=== PATIENT | female | born 1950 | race Caucasian/White ===

== ENCOUNTER 2018-09-14 18:38 | Outpatient (REF) | payer MEDICARE, SELFPAY ==
[2018-09-14 19:02] LABS: Abs Immature Grans 0.01 k/cumm (0.0-0.09); Absolute Basophil Count 0.04 k/cumm (0.0-0.2); Absolute Eosinophil Count 0.21 k/cumm (0.0-0.7); Absolute Lymphocyte Count 3.75 k/cumm (1.2-3.4); Absolute Monocyte Count 0.43 k/cumm (0.11-0.7); Absolute Neutrophil Count 3.64 k/cumm (1.2-6.7); Basophils % 0.5; Eosinophils % 2.6; HCT 43.7 % (36.0-46.0); HGB 14.4 g/dL (12.0-15.5); Immature Grans % 0.1; Lymphocytes % 46.4; Mean Corpuscular Hemoglobin 27.7 pg (27.0-33.0); Mean Platelet Volume 11.3 fL (8.0-11.0); Monocytes % 5.3; Neutrophils % 45.1; Platelet Count 234 x1000/uL (130-400); RBC Distribution Width 14.4 % (11.7-14.6); White Blood Cell Count 8.08 k/cumm (4.4-10.8)
[2018-09-14 19:25] LABS: ALT 18 U/L (12-78); AST 13 U/L (15-37); Albumin 3.5 g/dL (3.4-5.0); Alkaline Phosphatase 86 U/L (46-116); Anion Gap 8.1 mmol/L (3-11); BUN 23 mg/dL (7-18); Bilirubin, Total 0.8 mg/dL (0.2-1.0); CO2 30.9 mmol/L (21.0-32.0); CREATININE 0.85 mg/dL (0.55-1.02); Calcium 9.6 mg/dL (8.5-10.1); Chloride 105 mmol/L (98-107); Cholesterol 245 mg/dL (50-200); Glucose 103 mg/dL (70-100); HDL Cholesterol 42 mg/dL (40-60); LDL CHOLESTEROL 177 mg/dL (<100); Potassium 3.9 mmol/L (3.5-5.1); Sodium 144 mmol/L (136-145); TSH (W/Ref FT4) 2.52 uIU/mL (0.358-3.74); Total Protein 6.7 g/dL (6.4-8.2); Triglyceride 131 mg/dL (30-150)
[2018-09-14 19:50] LABS: COMMENT (LAB VIEW ONLY) 29.83 mg/dL; Microalb ug/mg Crea 30.2 ug/mg Cr
== END 2018-09-14 18:58 ==
LOC: NCHCN 18:38
PROVIDERS: PCP Nurse Practitioner Family; Visit Provider Nurse Practitioner Family
DX: E03.9 Hypothyroidism, unspecified (principal); I10 Essential (primary) hypertension; E78.5 Hyperlipidemia, unspecified; R73.09 Other abnormal glucose
CPT/HCPCS: 80053; 80061; 83721; 82043; 82570; 84443; 85025

== ENCOUNTER → 2019-01-18 10:47 | Outpatient (BNVA) | payer MEDICARE, SELFPAY | PROVIDERS: PCP Nurse Practitioner Family; Referring Provider Nurse Practitioner Family; Visit Provider Student in an Organized Health Care Education/Training Program | DX: M25.562 Pain in left knee (principal); M25.561 Pain in right knee; M17.11 Unilateral primary osteoarthritis, right knee; M17.12 Unilateral primary osteoarthritis, left knee | CPT/HCPCS: 20610; 99202; J1040 ==

== ENCOUNTER → 2019-03-01 15:24 | Outpatient (BNVA) | payer MEDICARE, SELFPAY | PROVIDERS: PCP Nurse Practitioner Family; Referring Provider Nurse Practitioner Family; Visit Provider Student in an Organized Health Care Education/Training Program | DX: M17.12 Unilateral primary osteoarthritis, left knee (principal); M17.11 Unilateral primary osteoarthritis, right knee; Z98.890 Other specified postprocedural states | CPT/HCPCS: 99213 ==

== ENCOUNTER 2019-04-20 10:52 | Emergency (ER) | payer MEDICARE, SELFPAY ==
[2019-04-20 11:02] VITALS: BP 134/66; PULSE 84; RESP 16; TEMP 36.6; O2SAT 96
--- NOTE | 2019-04-20 11:16 | ED.GENADUL_ITS ---
Discharge Plan Disposition Patient Disposition: HOME Condition: Good Discharge Details Chief Complaint: Nausea/Vomit/Diar Clinical Impression: Atrophy of right kidney, Diarrhea, Abdominal bloating, Acute hypokalemia, C. difficile diarrhea Primary Care Provider: Brandon Bowden ED Provider: Min Montemayor Home Meds and New Rx's Prescriptions: New vancomycin 125 mg capsule 125 mg PO QID 10 Days Qty: 40 RF: 0 No Action metoprolol succinate 200 mg cap,sprinkle,ER 24hr dose pack 100 mg PO DAILY RF: 0 amlodipine 10 mg tablet 10 mg PO DAILY RF: 0 levothyroxine 25 mcg capsule 25 mcg PO DAILY RF: 0 aspirin [Adult Low Dose Aspirin] 81 mg tablet,delayed release (DR/EC) 81 mg PO DAILY RF: 0 hydrochlorothiazide 25 mg Tablet 25 mg PO DAILY RF: 0 Discharge Instructions Instructions: Hypokalemia (ED), Clostridium Difficile Infection (ED), Acute Diarrhea (ED) Additional Instructions: We have identified the cause of your symptoms as C. difficile infection. Is very important you take your antibiotics. Additionally you must be able to tolerate oral intake, fluids and brat diet. If you are unable to do this or become dizzy lightheaded weak feverish abdominal pain, you will need to return to the emergency department right away. Follow-up with your primary care is very important to ensure that we are able to eradicate this infection. Discharge Data Discharge Date/Time-TO BE ENTERED AT DEPARTURE: 04/20/19 14:03 Medical Decision Making Patient resting comfortably, afebrile, stable vitals, able to tolerate p.o. intake. Labs significant for hypokalemia and mild hypomagnesemia. Discussed importance of continuing to eat despite having diarrhea which she had been reluctant to do. She will go home, eat bananas, along with brat diet. Discussed option of taking p.o. potassium but feels this will upset her stomach. Instructed to return promptly if she is unable to tolerate p.o., develops any lightheadedness dizziness, weakness,. Stool studies have been ordered and sent and we will contact her with results. For now she will follow-up with her primary care as scheduled next week. In addition of this she will need to follow-up with her primary care for her incidental finding of right renal atrophy with chronic ureteral obstruction and likely will need specialist consultation for this as well. Instructed to avoid NSAIDs. Addendum: just prior to departure, C. diff test returned and is pos. Reviewed tx w/ pt. Will initiate vancomycin po. GRACIE Womack is a 69-year-old woman with past medical history significant for hypertension presenting to the emergency department for evaluation of 2 months of abdominal bloating and diarrhea. She has approximately 10 episodes of watery diarrhea per day. She was seen for the same complaint on Wednesday in the [facility] emergency department. She underwent CT of her abdomen and pelvis as well as abdominal ultrasound, then right upper quadrant ultrasound the following day. No acute pathology identified. No choledocholithiasis, no pancreatitis, no diverticulitis or appendicitis, of note there was incidental finding of chronic right ureteral obstruction with resultant right renal parenchymal atrophy, comment from radiologist was that this is likely lifelong. At the time of that visit she had abdominal pain and chest pain associated with her symptoms along with vomiting. These additional symptoms have resolved, she is here today because of the ongoing diarrhea. This occurs whenever she eats or drinks. She is able to eat without vomiting however. No fevers, no chills, no pain, no bloody stools. She has had a colonoscopy in the past with recommended 10-year follow-up for screening purposes only. General Date/Time Provider Initiated Documentation: 04/20/19 11:14 . Related Data Home Medications Medication Instructions Recorded Confirmed amlodipine 10 mg tablet 10 mg PO DAILY 01/18/19 04/20/19 aspirin 81 mg tablet,delayed 81 mg PO DAILY 01/18/19 04/20/19 release levothyroxine 25 mcg capsule 25 mcg PO DAILY 01/18/19 04/20/19 metoprolol succinate 200 mg 100 mg PO DAILY 01/18/19 04/20/19 capsule sprinkle, ext. release 24 hr hydrochlorothiazide 25 mg PO DAILY 04/20/19 04/20/19 vancomycin 125 mg PO QID 10 Days #40 cap 04/20/19 Previous Rx's Medication Instructions Recorded vancomycin 125 mg PO QID 10 Days #40 cap 04/20/19 Allergies Allergy/AdvReac Type Severity Reaction Status Date / Time adhesive tape Allergy Verified 04/20/19 11:06 erythromycin base Allergy Verified 04/20/19 11:06 latex Allergy Verified 04/20/19 11:06 Penicillins Allergy Verified 04/20/19 11:06 potassium Allergy Verified 04/20/19 11:06 General Stated Complaint: Nausea/Vomit/Diar ILENE: 3 Review of Systems Constitutional Denies chills, Denies fatigue, Denies fever(s) and Denies lethargy Eyes Denies loss of vision ENT Denies nasal congestion and Denies sore throat Cardiovascular Denies chest pain and Denies dyspnea Respiratory Denies cough and Denies dyspnea Gastrointestinal Denies abdominal pain, Denies nausea and Denies vomiting Musculoskeletal Denies back pain, Denies muscle weakness and Denies numbness Integumentary/Breasts Denies rash Neurologic Denies focal weakness, Denies loss of vision and Denies numbness Endocrine Denies fatigue Hematologic/Lymphatic Denies easy bruising PFSH Social History Smoking/Tobacco Use Status: Never Alcohol Intake: never Substance use type: does not use Exam Const General: cooperative, healthy appearing and no acute distress HENMT Head: normal to inspection Ears: hearing grossly normal bilaterally Eyes EOM: EOM intact bilaterally Neck Neck: normal visual inspection Resp Effort & Inspection: normal respiratory effort Auscultation: clear to auscultation bilaterally Cardio Rate: regular rate Rhythm: regular rhythm Heart Sounds: no murmurs GI Palpation: soft and tender Other: Mild generalized abdominal tenderness with firm deep palpation. No guarding or rebound tenderness. There are hyperactive bowel sounds. Skin General skin exam: no rashes or lesions noted Neuro General: alert, awake and oriented x3 Speech: speech normal Gait: normal gait Extrem General: normal to inspection Course Vital Signs Temperature 36.6 C 04/20/19 11:02 Pulse 84 04/20/19 11:02 Respiratory Rate 16 04/20/19 11:02 Blood Pressure 134/66 04/20/19 11:02 Pulse Oximetry 96 04/20/19 11:02 Temperature 36.6 C 04/20/19 11:02 Temperature Source Skin 04/20/19 11:02 Pulse 84 04/20/19 11:02 Respiratory Rate 16 04/20/19 11:02 Respiratory Effort Non-Labored 04/20/19 11:02 Blood Pressure 134/66 04/20/19 11:02 Blood Pressure Position Sitting 04/20/19 11:02 Pulse Oximetry 96 04/20/19 11:02 Oxygen Delivery Method Room Air 04/20/19 11:02 Oxygen Flow Rate 0 04/20/19 11:02 Pain Level 0 04/20/19 11:02
[2019-04-20] MEDS: Normal Saline 1,000 ML 1000 ML IV (11:45)
[2019-04-20 11:56] LABS: Bilirubin Moderate (Negative); Blood Negative (Negative); Clarity Cloudy (Clear); Glucose Negative (Negative); Ketones 15 mg/dL (Negative); Leukocyte Esterase Small (Negative); Nitrite Negative (Negative); Specific Gravity 1.015 (1.005-1.025); Urobilinogen 0.2 EU/dL (Up TO 0.2); pH 5.5 (5-8)
[2019-04-20 11:56] LABS: Abs Immature Grans 0.01 k/cumm (0.0-0.09); Absolute Basophil Count 0.03 k/cumm (0.0-0.2); Absolute Eosinophil Count 0.66 k/cumm (0.0-0.7); Absolute Lymphocyte Count 2.74 k/cumm (1.2-3.4); Absolute Monocyte Count 1.15 k/cumm (0.11-0.7); Absolute Neutrophil Count 4.89 k/cumm (1.2-6.7); Basophils % 0.3; HCT 43.1 % (36.0-46.0); HGB 14.3 g/dL (12.0-15.5); Immature Grans % 0.1; Lymphocytes % 28.9; Mean Corp. HGB Concentration 33.2 g/dL (32.0-36.0); Mean Corpuscular Hemoglobin 27.4 pg (27.0-33.0); Mean Corpuscular Volume 82.7 fL (80-95); Mean Platelet Volume 10.1 fL (8.0-11.0); Monocytes % 12.1; Neutrophils % 51.6; Platelet Count 288 x1000/uL (130-400); RBC 5.21 m/cumm (4.00-5.20); RBC Distribution Width 14.6 % (11.7-14.6); White Blood Cell Count 9.48 k/cumm (4.4-10.8)
[2019-04-20 12:10] LABS: ALT 16 U/L (14-59); AST 12 U/L (15-37); Albumin 2.9 g/dL (3.4-5.0); Alkaline Phosphatase 100 U/L (46-116); Anion Gap 10.6 mmol/L (3-11); BUN 15 mg/dL (7-18); CO2 29.4 mmol/L (21.0-32.0); CREATININE 0.98 mg/dL (0.55-1.02); Calcium 8.7 mg/dL (8.5-10.1); Chloride 101 mmol/L (98-107); Estimated GFR 56.44 (mL/min/1.73m2); Glucose 111 mg/dL (70-100); Magnesium 1.7 mg/dL (1.8-2.4); Potassium 3.1 mmol/L (3.5-5.1); Sodium 141 mmol/L (136-145)
[2019-04-20 12:12] LABS: Epithelial Cells Many HPF (Negative); RBC >50 (0-2); WBC >50 HPF (0-5)
[2019-04-20 12:13] LABS: Bacteria Many HPF (Negative); C & S Indicated? No/Sq. Contamination; Casts Negative LPF (Negative); Crystals Negative HPF (Negative); Mucus Negative (Negative); Other Cells Moderate Renal (Negative)
[2019-04-20 12:22] LABS: Lipase 34 U/L (73-393)
[2019-04-20 13:50] VITALS: BP 125/70; PULSE 76; TEMP 35.2; O2SAT 94
[2019-04-20 14:00] VITALS: BP 125/70; PULSE 76; RESP 16; TEMP 35.2; O2SAT 94
[2019-04-21 10:56] LABS: Campylobacter PCR SEE COMMENTS; Salmonella PCR SEE COMMENTS; Shiga Toxin PCR SEE COMMENTS; Shigella/Enteroinvasive Ecoli SEE COMMENTS
== END 2019-04-20 14:03 | disposition home or self-care (01) ==
PROVIDERS: Emergency Provider Physician Assistant Medical; PCP Nurse Practitioner Family
DX: A04.72 Enterocolitis due to Clostridium difficile, not specified as recurrent (principal); E87.6 Hypokalemia; I10 Essential (primary) hypertension
CPT/HCPCS: 36415; 80053; 83690; 87329; 87505; 96360; 99283; 81003; 81015; 83735; 85025; 87177; 87324

== ENCOUNTER 2019-05-15 15:58 | Outpatient (CLI) | payer MEDICARE, SELFPAY ==
--- NOTE | 2019-05-15 15:14 | DI.RAD_ITS ---
EXAM: XR KNEE LT 2V AP,LAT INDICATION: knee pain. COMPARISON: No exams were available for comparison TECHNIQUE: 2D digital imaging was performed. FINDINGS: Narrowing of the medial tibiofemoral joint space and articular sclerosis are demonstrated. Mild ruchi articular hypertrophic spurring is noted. Narrowing of the patellofemoral joint and hypertrophic torres nges are identified. There is no joint effusion. There is no evidence of a fracture or dislocation. IMPRESSION: Severe DJD is demonstrated.
--- NOTE | 2019-05-15 15:14 | DI.RAD_ITS ---
EXAM: XR KNEE RT 2V AP,LAT INDICATION: knee pain. COMPARISON: XR KNEE LT 2V AP,LAT from 05/15/2019 TECHNIQUE: 2D digital imaging was performed. FINDINGS: There is narrowing of the medial joint compartment, articular sclerosis and periarticular hypertrophi c spurring. No joint effusion is seen. There is no evidence of fracture or dislocation. IMPRESSION: Severe DJD involving the right knee.
--- NOTE | 2019-05-15 15:30 | DI.RAD_ITS ---
EXAM: XR STANDING ALIGNMENT INDICATION: knee pain. COMPARISON: No exams were available for comparison TECHNIQUE: 2D digital imaging was performed. FINDINGS: Leg length study reveals the left leg measures 837 mm. The right leg measures 828 mm. There is sever e DJD involving both knees.
== END 2019-05-15 16:18 ==
PROVIDERS: PCP Nurse Practitioner Family; Referring Provider Nurse Practitioner Family; Visit Provider Student in an Organized Health Care Education/Training Program
DX: M25.561 Pain in right knee (principal); M25.562 Pain in left knee; M17.11 Unilateral primary osteoarthritis, right knee; M21.70 Unequal limb length (acquired), unspecified site; M17.12 Unilateral primary osteoarthritis, left knee
CPT/HCPCS: 20610; 99214; 73560; 77073; J1040

== ENCOUNTER 2019-08-24 10:31 | Outpatient (CLI) | payer MEDICARE, SELFPAY ==
[2019-08-24 10:52] LABS: HCT 43.1 % (36.0-46.0); HGB 14.2 g/dL (12.0-15.5); Mean Corp. HGB Concentration 32.9 g/dL (32.0-36.0); Mean Corpuscular Volume 82.1 fL (80-95); Mean Platelet Volume 10.1 fL (8.0-11.0); Platelet Count 254 x1000/uL (130-400); RBC 5.25 m/cumm (4.00-5.20); RBC Distribution Width 14.6 % (11.7-14.6); White Blood Cell Count 7.74 k/cumm (4.4-10.8)
[2019-08-24 11:47] LABS: BUN 21 mg/dL (7-18); CREATININE 0.67 mg/dL (0.55-1.02); Calcium 9.5 mg/dL (8.5-10.1); Chloride 105 mmol/L (98-107); Glucose 104 mg/dL (74-106); Potassium 4.1 mmol/L (3.5-5.1); Sodium 145 mmol/L (136-145)
== END 2019-08-24 10:51 ==
PROVIDERS: PCP Nurse Practitioner Family; Visit Provider Student in an Organized Health Care Education/Training Program
DX: M25.562 Pain in left knee (principal); M17.12 Unilateral primary osteoarthritis, left knee; Z01.818 Encounter for other preprocedural examination
CPT/HCPCS: 36415; 80048; 85027

== ENCOUNTER 2019-08-30 07:12 | Inpatient (IN) | payer MEDICARE, SELFPAY ==
[2019-08-24 09:37] VITALS: BP 134/74; PULSE 61; RESP 16; TEMP 36.6; O2SAT 99
[2019-08-30] VITALS (13 sets, daily range): BP systolic 96–136; BP diastolic 33–83; PULSE 48–65; RESP 12–27; TEMP 35.7–37.1; O2SAT 93–99
[2019-08-30] MEDS: Celecoxib 200 MG CAP 400 MG PO (07:35)
[2019-08-30] MEDS: Acetaminophen 500 MG TAB 1000 MG PO ×3 (07:36→19:46)
[2019-08-30] MEDS: Gabapentin 300 MG CAP PO ×2 (07:36→21:42)
[2019-08-30] MEDS: Lactated Ringers 1,000 ML 80 ML IV ×3 (07:37→21:41)
[2019-08-30] MEDS: ceFAZolin 2 GM/50 ML BAG IVPB (08:40)
[2019-08-30] MEDS: Normal Saline 20 ML VIAL (09:26)
[2019-08-30] MEDS: Bupivacaine 0.25% Pres-Free 30 ML VIAL (09:28)
[2019-08-30] MEDS: Ketorolac 30 MG/ML VIAL (09:28)
--- NOTE | 2019-08-30 12:12 | NUR.NOTE ---
Nursing Note: Patient transferred to floor from PACU at noon on 08/30/19. Patient alert and oriented x 3. Patient denies pain to left knee at this time, but reports feeling it when cryo cuff was turned on. Patient reports normal sensation to bilateral lower extremities. Patient able to wiggle toes. Denies residual numbness/tingling. Positive pedal and radial pulses bilaterally. Irregular HR bradycardic at 48-54 apically. Lungs clear in all lobes. Normal bowel sounds. Reports last BM 08/29/19. Cryo cuff on left knee. SCD and KIMBERLY on right leg. VSS, see worklist. Patient drinking gingerale and watching TV.
--- NOTE | 2019-08-30 14:41 | PT.INIE ---
Date of service: 08/30/19 Time of Service: 13:26 PT Notes Visit Reasons: OA (L) KNEE Physical Therapy Inpatient Initial Evaluation Date: 08/30/2019 Referring Doctor: Cristian Kirk MD PT Orders: PT CONSULT: s/p ortho surgery Precautions: Fall. Standard. Activity as tolerated. Patient Profile/Admitting Diagnosis: Pt is a 69-year-old female presenting s/p L TKA on 08/30/2019. PMHX: Medical History (Updated 08/24/19 @ 08:45 by Danika Faustin) Borderline diabetes mellitus (Chronic) Hx of Clostridium difficile infection (Acute) ER visit Improved with oral antibx Hypertension (Chronic) Hypothyroidism (Chronic) Impaired renal function (Chronic) Pt reported Vaginal yeast infection (Acute) Surgical History (Updated 08/24/19 @ 09:34 by Nannette Elmore RN) History of breast surgery (Acute) Blocked duct Left breast History of (Chronic) History of colonoscopy (Chronic) History of eye surgery (Acute) Right eye - detached retina Hx of dilation and curettage (Acute) Social History/Home Situation: Pt lives at home with her in a ranch style home. Three steps into the home with railing on the left. Notes she has a daughter and friends that are able to be with her when her is not home. Two dogs in the house. Equipment Owned/DME: two-wheeled walker Subjective: Pt reports that she is not experiencing any pain with lying in bed. She reports feeling lightheaded following the surgery which has improved. Objective: General Observation: IV on right UE. pérez catheter in place. KIMBERLY stocking on RLE. Mental Status: alert and oriented x4 Pain: 0/10 pain with rest, 1-2/10 when standing Vital Signs: Supine BP 132/74 mmHg HR 55 bpm Sitting BP 123/65 mmHg HR 57 bpm Standing BP 111/75 HR 58 bpm ROM: Right Upper Extremity: Shoulder Flexion WFL. Shoulder abduction WFL. Elbow flexion WFL. Wrist flexion WFL. Opening and closing of hand WFL. Left Upper Extremity: Shoulder Flexion WFL. Shoulder abduction WFL. Elbow flexion WFL. Wrist flexion WFL. Opening and closing of hand WFL. Right Lower Extremity: Hip flexion WFL. Hip abduction WFL. Knee flexion WFL. Ankle dorsiflexion WFL. Ankle plantarflexion WFL. Left Lower Extremity: Hip flexion WNL. Hip abduction WFL. Knee flexion 105 degrees. Knee extension -20 degrees. Able to perform 10 SLR with moderate difficulty. Ankle dorsiflexion WFL. Ankle plantarflexion WFL. Strength: Right Upper Extremity: Shoulder flexors 5/5. Shoulder abductors 5/5. Elbow flexors 5/5. Elbow extensors 5/5. Seamless Tube Drawer strong. Left Upper Extremity: Shoulder flexors 5/5. Shoulder abductors 5/5. Elbow flexors 5/5. Elbow extensors 5/5. Seamless Tube Drawer strong. Right Lower Extremity: Hip flexors 5/5. Hip abductors 5/5. Knee flexors 5/5. Knee extensors 5/5. Ankle dorsiflexors 5/5. Ankle plantarflexors 5/5. Left Lower Extremity: Hip flexors 4-/5. Hip abductors 5/5. Knee flexors 3-/5. Knee extensors 3-/5. Ankle dorsiflexors 5/5. Ankle plantarflexors 5/5. Sensation: Intact as to pain and pressure on bilateral lower extremities. Bed Mobility/Transfers: Rolling SBA Supine to sit SBA Sit to supine SBA Sit to stand CGA Stand to sit CGA Bed to chair CGA Chair to bed CGA Gait: Pt was able to ambulate WBAT 30 feet using a two-wheeled walker with CGA by PT with follow behind of wheelchair by PT student. Step-to gait pattern. No complaints of increased dizziness or pain with ambulation. Balance: Static Sitting: Normal Dynamic Sitting: Normal Static Standing: Good Dynamic Standing: Fair Special Tests: Mobility Limitations Standardized Measure [facility] AM-PAC 6 clicks Basic Mobility Inpatient Short Form: Raw Score: 21 CMS Score: 29% deficit Informed Consent/Education: Patient instructed in purpose of PT consult and plan of care. HEP glute sets, quad sets, and ankle pumps. Assessment: Pt is a 69-year-old female presenting s/p L TKA, surgical date 08/30/2019. At the time of the initial evaluation the patient presented with impairment level findings including decreased strength, impaired L knee ROM, impaired gait, impaired static and dynamic standing balance, and decreased activity tolerance. Pt would continue to benefit from skilled physical therapy at this time for improved functional mobility, joint mobility, strength and management of pain in order to return home. Patient presents with clinical signs and symptoms consistent with current/admitting diagnoses that have resulted to mobility limitations, gait instability, generalized weakness, and impairment of motor control as demonstrated by the following impairment level findings: 1. Decreased strength to L LE hip and knee major muscle groups 2. Impaired standing balance 3. Impaired activity tolerance 4. Limitation of joint range of motion in L knee Impairments are contributing to the following functional limitations: 1. Dependent bed mobility skills 2. Increased dependence with transfers 3. Inability to safely ambulate without assistive device and physical assistance 4. Increase completion time for mobility ADL performance 5. Increased fall risk 6. Inability to negotiate steps alone safely Patient is assessed as a [id number] moderate complexity based on the following: History: Pt is a 69-year-old female presenting s/p L TKA Examination: Demonstrable impairment in strength, balance, and range of motion with underlying impairments and functional limitations as documented above Presentation: Evolving Decision Makin moderate complexity Goals: Goals X1 week 1. Sit-Stand independent 2. Stand-Sit independent 3. Bed-Chair independent 4. Chair-Bed independent 5. Independent gait on level surface with use of least restrictive device for at least 300 feet without report of pain nor dyspnea 6. Independent stair negotiation while holding onto bilateral rails for at least 5 steps without report of pain nor dyspnea 7. Independent with home exercise program 8. Good static and dynamic standing balance/tolerance Plan of Care/Treatment Plan: 1-2x/day, 7 days/week x 1 week. Plan of care has been reviewed with the REQUIREMENTS ENGINEER providing the service under Physical Therapy direction. Initiate Physical Therapy intervention for strengthening, bed mobility, transfers, gait, stairs, balance training, use of assistive device. DISCHARGE RECOMMENDATIONS: May benefit from skilled physical therapy services according to orthopedic surgeon's timeline recommendations. Patient will be educated and trained on home exercise program per TKA exercise protocol in preparation for outpatient physical therapy services. TREATMENT CODE/TIME: 15582 x 25 minutes, [id number] x 14 minutes beginning at 13:26 p.m. Thank you very much for this referral. Hortencia Rome, SPT Doctor of Physical Therapy Student [facility] Supervision provided by Maggi Gruber PT, DPT, CLT [facility] [place], [place]
[2019-08-30] MEDS: ceFAZolin 1 GM/50 ML BAG IVPB ×2 (15:35→23:37)
[2019-08-30] MEDS: Normal Saline Flush 10 ML SYR IV (15:36)
[2019-08-30] MEDS: Naproxen 500 MG TAB PO (19:46)
[2019-08-30] MEDS: Aspirin E.C. 81 MG TABEC PO (19:46)
--- NOTE | 2019-08-30 21:30 | ROE_ITS ---
Date of service: 08/30/19 Time of Service: 10:31 Operative Note Operative Note DATE OF PROCEDURE: 08/30/19 PRE-OP DIAGNOSIS: Left Knee Osteoarthritis POST-OP DIAGNOSIS: same PROCEDURE: Left Total Knee Replacement SURGEON: Cristian Kirk BRANCH OFFICE MANAGER: Danika Faustin ANESTHESIA: regional and spinal ESTIMATED BLOOD LOSS: 150 PATHOLOGY: none sent TOURNIQUET TIME: 0 COMPLICATIONS: None Patient was transported to: PACU Patient's condition: stable Implants: 1. Depuy Attune Posterior Stabilized Femoral Component, Size 3 2. Depuy Attune Fixed Platform Tibial Component, Size 3 3. Depuy Attune 3 x 8 fixed, Stabilized Poly 4. Depuy Attune Patellar Component, Size 35 Indications: I have seen Shanta in clinic for symptoms of left knee arthritis, confirmed with radiographic findings. Shanta has exhausted nonoperative methods and was having significant limitations in daily function and desired better function and less pain. I discussed the technical details of a knee replacement. I explained the risks of the procedure to include, but not limited to, bleeding, infection, pain, stiffness, fracture, damage to nerves and vessels, damage to muscles and tendons, loosening, need for repeat procedure, blood clot and cardiopulmonary demise. Despite these risks, Shanta elected to pr oceed. Findings: There was significant signs of arthritis throughout the knee. Procedure Description: Shanta was greeted in the preoperative holding area where the correct side was identified and marked. The consent was reviewed with the patient and signed. The history and physical was updated. All questions were answered. Preoperative mediacations were administered: Acetaminophen 1000mg, Celebrex 400mg, and Gabapentin 300mg. An adductor canal block was then administered by the anesthesia team in the PACU. Shanta was taken back to the operating room. A spinal anesthestic was then administered. The patient was placed into the supine position on the operating room table. A nonsterile tourniquet was placed high onto the leg but not used. Posts were placed for positioning during the procedure. All bony prominences were well padded. Prophylactic antibiotics in the form of cefazolin were administered. 1g of Tranxemic Acid was given intravenously within 30 minutes of incision. The left leg was then prepped with Chloraprep and draped in a standard fashion with impervious stockinette and extremity drape. A second prep with Chloraprep was performed prior to placing Ioband. A timeout to confirm correct identity, side and site, procedure, allergies, anesthesia, and medical concerns was performed. With the knee in some flexion, a midline incision was made overlying the knee. Full thickness skin flaps were raised once the extensor mechanism was encountered. These were raised medially and laterally. Any bleeding was controlled with electrocautery. Once the extensor mechanism was fully exposed, a medial parapatellar arthrotomy was performed in a flexed position. All bleeding from the arthrotomy and the geniculate arteries was coagulated. A medial subperiosteal peel was performed with electrocautery to the midcoronal plane. Due to the significant varus deformity the entire medial tibial plateau was exposed. The fat pad was removed while keeping the patellar tendon protected. The anterior distal femur synovium was removed for later visualization. The ACL and PCL were resected and the anterior horn of the lateral meniscus was transected. The knee was then flexed with the patella everted. Large osteophytes from the tibia were removed. Large osteophytes from the femur were removed. Using a step drill, and based on preoperative templating, the femoral canal was entered. This was done with a step drill without any difficulty. The intramedullary distal femoral cut guide was inserted, set to a 4 degree valgus cut and 9mm cut thickness. The distal femoral cut guide was then held in position and pinned. With the soft tissues protected, the distal cut was performed. This was passed over a few times to ensure a planar cut. I then turned attention to the tibia. The extramedullary guide was placed onto the leg. The distal aspect was slid medial to adjust for position of center of ankle and stay in line with shaft of the tibia. Approximately 3-5 degrees of posterior slope was kept in the proximal cutting guide. The center of the guide was aligned with the PCL. The stylus was used to assess cut thickness. The medial side, most involved side, was set for a 4mm cut. This was then held in position and pinned into place with 2 additional pins and a cross pin for stability. The medial and lateral collateral ligaments were protected and the cut was performed. With this completed, it was assessed and noted to be of appropriate dimensions. The guide was removed. A spacer block was inserted and the knee was brought into extension. The 7mm spacer block provided full extension, without hyperextension and with stability of both the medial and lateral collateral ligaments was assessed. The pins from the femur and the tibia were then removed. The distal femur was then sized. The anterior stylus was placed onto the lateral ridge of the anterior femur. This indicated a size 3 femur. The external rotation of the guide was adjusted to 3 degrees to match the epicondylar axis, perpendicular to Otf?s line. The 4-in-1 cutting guide was the placed. The posterior medial femur cut was evaluated and appeared of good thickness. The spacer block was inserted underneath the cutting guide and stability was confirmed in 90 degrees of flexion. An demetri wing was used to confirm appropriate position of the anterior cut to avoid notching. This cutting guide was ensured to be flush on the cut surface and then pinned into p lace with headed pins. While protecting the soft tissues, quad tendon, and collateral ligaments, the anterior and posterior cuts were performed with a saw. The central two pins were removed and the posterior and anterior chamfers were cut next. The notch-cutting guide was placed. This was pinned to lateralize the femoral component as much as possible while keeping it flush on the cut surface. This was then pinned into position. A reciprocating saw was used to make the notch cut. A rasp smoothed the cut surfaces. A trial posterior stabilized femoral component was then inserted, impacted down to the cut surfaces, and the lug holes were drilled. A provisional trial tibial component was placed and the knee was brought through range of motion. The polyethylene was trialed until there was good flexion and extension with excellent stability to the medial and lateral collaterals.] The patella was tracking without thumbs. The tibial cut surface was fully exposed. The medial and lateral menisci were removed. The tibia was then sized as a 3. The tibia had been previously marked during trialing to correspond to the center of the tibial component to help with rotation. The trial was aligned to this bee, approximately rotated to the medial 1/3rd of the tibial tubercle. The trial was pinned into place. The tibia was prepared with a reamer and a keel punch. The knee was then brought into extension and the patella was measured as 22mm. Using the patellar clamp and cut guide, this was resected to a flat surface with at least 13mm of thickness remaining. The size 35 patella fit the best. This was oriented and then clamped into position. The lugs were drilled. The trial components were removed. The final components, except for the polyethylene were opened on the back table. The periosteal and capsular tissues, especially posteriorly, around the knee were then systematically injected with a periarticular cocktail consisting of 50cc 0.25% Marcaine, 30mg K etorolac, 20cc of Exparal and 50cc of injectable saline. The tourniquet was then inflated to 275mmHg. The knee was thoroughly irrigated with a pulse lavage and dried. On the back table, with the implants opened, the cement was mixed. 2 batches of antibiotic laden cement were prepared with vacuum assistance. After the cement was ready it was placed on to the back side of the tibial component. A small amount was placed onto the posterior flange of the femur. Cement was manual pressurized and impregnated into the cut surface of the tibia. The tibial component was then inserted into the cut surface and impacted into position. Excess cement was removed and the component was reimpacted. Again, excess cement was removed and our attention was then turned to the femur. The femoral cut surface was once again dried and cement was manually impacted into the cut surface. The femoral component was lined with the lug holes and impacted. Excess cement was removed. It was ensured to be down against the cut surface. The trial polyethylene was then inserted and the leg was brought out into full extension for the duration of the cement curing process, approximately 15min. Cement was lastly manually impacted into the cut surface of the patella and the patellar button was clamped into position and held. During this process attention was turned to the gutters of the knee and for all interfaces for any excess cement. While the cement was hardening, the knee was irrigated with Irrisept chlorhexadine solution. It was allowed to sit in the knee for 3 minutes. After the cement had finally cured, approximately 15min, the clamp was removed from the patella and the knee was taken through range of motion. A size 8mm polyethylene component provided the best range of motion and stability with less than 2mm gapping with medial and lateral stress and full extension without significant hyperextension. The patella was tracking with a no-thumbs technique. The trial poly was removed and once again the knee was checked for any loose, excess, or errant cement. The poly component was then inserted and impacted into position after cleaning and drying the tibial tray. The capsule was then reapproximated with a No. 1 Vicryl at multiple locations. The capsule was finally closed with a No. 2 Stratafix, barbed suture. The tourniquet was then released and the arthrotomy appeared watertight without significant bleeding. The second dosing of 1g TXA was started. Deep tissues were then reapproximated with 0 Vicryl and 2-0 Vicryl. The skin was closed with a running 3-0 Monocryl in a subcuticular fashion. This was reinforced with skin glue. A Mepilex silver dressing was applied along with a [id number] ZAIDA wrap. A CryoCuff was applied. Shanta was transferred to the hospital bed without difficulty an suffering no apparent complication. Shanta has a good prognosis. Physical therapy will start today and without restrictions, weight-bearing as tolerated. Aspirin 81mg BID will be used for DVT prophylaxis.
[2019-08-31 03:43] VITALS: BP 112/72; PULSE 72; RESP 17; TEMP 36.5; O2SAT 94
[2019-08-31] MEDS: Levothyroxine 25 MCG TAB PO (06:15)
[2019-08-31 07:30] VITALS: BP 117/73; PULSE 64; RESP 18; TEMP 36.5; O2SAT 99
--- NOTE | 2019-08-31 07:40 | W.PM.DS.N ---
Date of service: 08/31/19 Time of Service: 09:42 DS: Diagnosis Discharge Diagnosis (1) Degenerative joint disease of left knee: Status: Chronic Discharge Plan Disposition Patient Disposition: HOME Condition: Good Discharge Details Reason For Visit: OA (L) KNEE Admit Date/Time: 08/30/19 07:12 Admit Provider: Cristian Kirk Attending Provider: Cristian Kirk Primary Care Provider: Brandon Bowden Hospital Course Hospital Course: Patient was admitted to the medical/surgical floor following the procedure. It was tolerated well without any notable medical, surgical, or anesthetic complications. Mobilization began postoperatively. The pérez catheter was removed and voiding spontaneously. Vitals were stable. Physical therapy worked with the patient and was cleared for discharge home. No acute medical issues. Home Meds and New Rx's Prescriptions: New aspirin 81 mg tablet,delayed release (DR/EC) 81 mg PO BID Qty: 60 RF: 0 acetaminophen 500 mg tablet 1,000 mg PO Q8H PRN (Reason: pain) Qty: 90 RF: 3 pantoprazole 40 mg tablet,delayed release (DR/EC) 40 mg PO DAILY Qty: 30 RF: 0 gabapentin 300 mg capsule 300 mg PO QHS Qty: 7 RF: 0 oxycodone 5 mg tablet 5 mg PO Q4H Qty: 18 RF: 0 naproxen 500 mg tablet 500 mg PO BID PRN (Reason: pain) Qty: 60 RF: 0 Continued metoprolol succinate 200 mg cap,sprinkle,ER 24hr dose pack 100 mg PO DAILY RF: 0 amlodipine 10 mg tablet 10 mg PO DAILY RF: 0 levothyroxine 25 mcg capsule 25 mcg PO DAILY RF: 0 aspirin [Adult Low Dose Aspirin] 81 mg tablet,delayed release (DR/EC) 81 mg PO DAILY RF: 0 hydrochlorothiazide 25 mg Tablet 25 mg PO DAILY RF: 0 Discharge Instructions Additional Instructions: Dr. Kirk?s Total Knee Discharge Instructions Activity: The most important activity is to walk. You should try to take short walks a few times a day. It is important that when resting you work on keeping the knee straight. Avoid putting a pillow behind the knee as this will encourage flexion. Work on range of motion exercises as provided by Physical Therapy. - Start outpatient physical therapy within 2 weeks. - You should wear the KIMBERLY hose on both legs for 2 weeks. Dressing: Remove the ZAIDA wrap by post-op day #2, then apply KIMBERLY stocking. Keep the surgical dressing in place for at least one week. After the first week it may be removed and replace with light gauze and tape or nothing. It may get wet after 3 days but avoid soaking the dressing. If it gets wet, just lightly pat dry. Medications: - You should take Tylenol and anti-inflammatory Naproxen as your primary pain control medications - You have been prescribed a stronger pain medication Oxycodone for breakthrough pain, take as needed as prescribed. - You have Gabapentin prescribed to take at night for pain control for 7 nights. - You have also been prescribed a stomach acid reduction agent Pantoprozole to help reduce stomach acid and reflux. - You will be taking Aspirin 81mg twice a day for DVT prevention unless instructed otherwise. - If you have constipation you should take Colace or Miralax (both [id number]). It takes most people 3-4 days to have a bowel movement. Follow-up: 2 weeks Referrals: Cristian Kirk MD [ [facility] STAFF PHYSICIAN] - Activity:: Activity as Tolerated Equipment/Supplies:: Walker Diet:: As Tolerated Discharge Orders Discharge Orders: Discharge Order (Routine); Ordered 08/31/19 Ordered By: Cristian Kirk DS: Summary Status at Discharge Functional status at discharge: uses cane/walker Overall status at discharge: patient is progressing back to baseline Mental Status: mental status grossly normal Speech and Movement: speech and movement normal Mood: congruent mood Affect: normal affect Exam Extrem Other: Left knee dressing c/d/i. SLR intact. ROM 5-85. Psych Mental Status: mental status grossly normal Speech and Movement: speech and movement normal Mood: congruent mood Affect: normal affect DS: Data Vitals/I&O Vitals and I&O: Vital Signs Temperature 36.5 C 08/31/19 03:43 Temperature Source Tympanic 08/31/19 03:43 Pulse 72 08/31/19 03:43 Pulse Rhythm Regular 08/31/19 01:08 Respiratory Rate 17 08/31/19 03:43 Respiratory Effort Non-Labored 08/31/19 01:08 Respiratory Depth Normal 08/31/19 01:08 Respiratory Pattern Normal 08/31/19 01:08 Blood Pressure 112/72 08/31/19 03:43 Pulse Oximetry 94 L 08/31/19 03:43 Respiratory End-tidal CO2 33 08/30/19 11:18 Oxygen Delivery Method Room Air 08/31/19 03:43 Oxygen Flow Rate 0 08/31/19 03:43 Pain Level 0 08/31/19 03:43 Intake & Output 08/30/19 08/30/19 08/31/19 11:59 23:59 11:59 Intake Total 520.666 / 2905.333 2384.667 / 2905.333 400 / 400 Output Total 200 / 1550 1350 / 1550 800 / 800 Balance 320.666 / 7241.977 3662.667 / 1355.333 -400 / -400 Weight 86.5 kg Intake: IV 480.666 / 1345.333 864.667 / 1345.333 Oral 40 / 1560 1520 / 1560 400 / 400 Output: Urine 50 / 1400 1350 / 1400 800 / 800 Estimated Blood Loss 150 / 150 Other: Urine Color Yellow Pale Pale Yellow Yellow Urine Appearance Clear Clear Clear Emesis Description None PFSH Medical History Borderline diabetes mellitus (Chronic) Hx of Clostridium difficile infection (Acute) ER visit Improved with oral antibx Hypertension (Chronic) Hypothyroidism (Chronic) Impaired renal function (Chronic) Pt reported Vaginal yeast infection (Acute) Surgical History History of breast surgery (Acute) Blocked duct Left breast History of (Chronic) History of colonoscopy (Chronic) History of eye surgery (Acute) Right eye - detached retina Hx of dilation and curettage (Acute) Family History Mother TIA (transient ischemic attack) Other Diabetes Heart disease Social History Smoking/Tobacco Use Status: Never Alcohol Intake: current Alcohol Intake frequency: holidays/special occasions only Drug use: Never Substance use type: does not use Nisha/Mormon: Adventism Agree to transfusion: No
[2019-08-31] MEDS: Acetaminophen 500 MG TAB 1000 MG PO (07:41)
[2019-08-31] MEDS: Metoprolol CR 100 MG TABCR PO (07:41)
[2019-08-31] MEDS: amLODIPine 10 MG TAB PO (07:42)
[2019-08-31] MEDS: Aspirin E.C. 81 MG TABEC PO (07:42)
[2019-08-31] MEDS: hydroCHLOROthiazide 25 MG TAB PO (07:42)
[2019-08-31] MEDS: Naproxen 500 MG TAB PO (07:43)
[2019-08-31] MEDS: Pantoprazole 40 MG TABCR PO (07:43)
[2019-08-31] MEDS: ceFAZolin 1 GM/50 ML BAG IVPB (07:43)
--- NOTE | 2019-08-31 14:32 | PT.INTREAT ---
Date of service: 08/31/19 Time of Service: 14:32 PT Notes Visit Reasons: OA (L) KNEE Inpatient Physical Therapy Treatment Note [facility] Date: 08/31/2019 PRECAUTIONS: Fall, WBAT L SUBJECTIVE: Shanta is agreeable to participate in PT, stating that she would like to return to home today. OBJECTIVE: PAIN: Patient c/o posterior knee pain with ther ex and gait training BED MOBILITY/TRANSFERS Sit-stand: S Stand-sit: S GAIT Assistive Device: FWW Weight bearing:WBAT L Assist: SBA Distance: 75' x2 Deviation: Seated rest x1, cueing for continuous FWW advancement THEREX: Patient completed a LE strengthening program in a seated position, as per flow sheet. She ends with cryocuff to L knee. STAIRS: Up/down 3x4 and 2x6 using 1 rail/SPC and a step-to pattern with supervision. ASSESSMENT: Patient tolerated session without complaint. She was able to tolerate a progression in gait distance with FWW support and supervision. PLAN: As per primary PT TREATMENT CODE/TIME: 40 minutes; 15234 x2, [id number]
--- NOTE | 2019-09-01 17:30 | INDS_ITS ---
Date of service: 09/01/19 Time of Service: 17:30 PT Notes Visit Reasons: OA (L) KNEE Inpatient Physical Therapy Discharge Summary Dates:09/01/2019 Dates of Service: 08/30/2019 and 08/31/2019 This is a clinical summary of care provided on the duration of dates listed above. No charge was made in the completion of this documentation. Referring Doctor: Cristian Kirk MD PT Orders: PT CONSULT: s/p ortho surgery Precautions: Fall. Standard. Activity as tolerated. Patient Profile/Admitting Diagnosis: Pt is a 69-year-old female presenting s/p L TKA on 08/30/2019. PMHX: Medical History (Updated 08/24/19 @ 08:45 by Danika Faustin) Borderline diabetes mellitus (Chronic) Hx of Clostridium difficile infection (Acute) ER visit Improved with oral antibx Hypertension (Chronic) Hypothyroidism (Chronic) Impaired renal function (Chronic) Pt reported Vaginal yeast infection (Acute) Surgical History (Updated 08/24/19 @ 09:34 by Nannette Elmore RN) History of breast surgery (Acute) Blocked duct Left breast History of (Chronic) History of colonoscopy (Chronic) History of eye surgery (Acute) Right eye - detached retina Hx of dilation and curettage (Acute) Social History/Home Situation: Pt lives at home with her in a ranch style home. Three steps into the home with railing on the left. Notes she has a daughter and friends that are able to be with her when her is not home. Two dogs in the house. Equipment Owned/DME: two-wheeled walker Subjective: NT Objective: General Observation: NT. Mental Status: NT Pain: NT supervision ROM: Right Upper Extremity: Shoulder Flexion WFL. Shoulder abduction WFL. Elbow flexion WFL. Wrist flexion WFL. Opening and closing of hand WFL. Left Upper Extremity: Shoulder Flexion WFL. Shoulder abduction WFL. Elbow flexion WFL. Wrist flexion WFL. Opening and closing of hand WFL. Right Lower Extremity: Hip flexion WFL. Hip abduction WFL. Knee flexion WFL. Ankle dorsiflexion WFL. Ankle plantarflexion WFL. Left Lower Extremity: Hip flexion WNL. Hip abduction WFL. Knee flexion 105 degrees. Knee extension -20 degrees. Able to perform 10 SLR with moderate difficulty. Ankle dorsiflexion WFL. Ankle plantarflexion WFL. Strength: Right Upper Extremity: Shoulder flexors 5/5. Shoulder abductors 5/5. Elbow flexors 5/5. Elbow extensors 5/5. Press Department Manager strong. Left Upper Extremity: Shoulder flexors 5/5. Shoulder abductors 5/5. Elbow flexors 5/5. Elbow extensors 5/5. Press Department Manager strong. Right Lower Extremity: Hip flexors 5/5. Hip abductors 5/5. Knee flexors 5/5. Knee extensors 5/5. Ankle dorsiflexors 5/5. Ankle plantarflexors 5/5. Left Lower Extremity: Hip flexors 4-/5. Hip abductors 5/5. Knee flexors 3-/5. Knee extensors 3-/5. Ankle dorsiflexors 5/5. Ankle plantarflexors 5/5. Sensation: Intact as to pain and pressure on bilateral lower extremities. Bed Mobility/Transfers: Rolling supervision Supine to sit supervision Sit to supine supervision Sit to stand supervision Stand to sit supervision Bed to chair supervision Chair to bed supervision Gait: 75 feet x 2 with FW W WBAT on the left with SBA. 1 seated rest needed. Cues given for continuing walker advancement. Tolerated up-and-down three 4 inch steps and two 6 inch steps with one hand holding onto the rail and holding a single-point cane with a step to gait pattern supervision. Balance: Static Sitting: Normal Dynamic Sitting: Normal Static Standing: Good Dynamic Standing: Fair Assessment: Pt is a 69-year-old female presenting s/p L TKA, surgical date 08/30/2019. At the time of the initial evaluation the patient presented with impairment level findings including decreased strength, impaired L knee ROM, impaired gait, impaired static and dynamic standing balance, and decreased activity tolerance. Pt would continue to benefit from skilled physical therapy at this time for improved functional mobility, joint mobility, strength and management of pain in order to return home. Patient continues to present with clinical signs and symptoms consistent with current/admitting diagnoses that have resulted to mobility limitations, gait instability, generalized weakness, and impairment of motor control as demonstrated by the following impairment level findings: 1. Decreased strength to L LE hip and knee major muscle groups 2. Impaired standing balance 3. Impaired activity tolerance 4. Limitation of joint range of motion in L knee Impairments continue to contribute to the following functional limitations: 1. Inability to safely ambulate without assistive device and physical assistance 2. Increase completion time for mobility ADL performance 3. Increased fall risk 4. Inability to negotiate steps alone safely Goals: Goals X1 week 1. Sit-Stand independent NOT MET 2. Stand-Sit independent NOT MET 3. Bed-Chair independent NOT MET 4. Chair-Bed independent NOT MET 5. Independent gait on level surface with use of least restrictive device for at least 300 feet without report of pain nor dyspnea NOT MET 6. Independent stair negotiation while holding onto bilateral rails for at least 5 steps without report of pain nor dyspnea NOT MET 7. Independent with home exercise program NOT MET 8. Good static and dynamic standing balance/tolerance NOT MET DISCHARGE RECOMMENDATIONS: May benefit from skilled physical therapy services according to orthopedic surgeon's timeline recommendations. Patient will be educated and trained on home exercise program per TKA exercise protocol in preparation for outpatient physical therapy services. TREATMENT CODE/TIME: NC. Thank you very much for this referral. Maggi Gruber PT, DPT, CLT [facility] [place], [place]
== END 2019-08-31 12:40 | disposition home or self-care (01) | DRG 470 ==
LOC: MS 11:20
PROVIDERS: Admitting Provider Student in an Organized Health Care Education/Training Program; PCP Nurse Practitioner Family; Visit Provider Student in an Organized Health Care Education/Training Program
PROC: 0SRD0J9 Replacement of Left Knee Joint with Synthetic Substitute, Cemented, Open Approach (ICD-10-PCS; CPT 27447; principal; 2019-08-30 08:30)
DX: M17.12 Unilateral primary osteoarthritis, left knee (principal); M25.562 Pain in left knee; M21.162 Varus deformity, not elsewhere classified, left knee; Z96.652 Presence of left artificial knee joint; G89.18 Other acute postprocedural pain; I10 Essential (primary) hypertension; E03.9 Hypothyroidism, unspecified
CPT/HCPCS: 27447; 76942; 97110; 97162; 97530; NC; J0690; J1885; J2250; J2405

== ENCOUNTER 2019-09-14 11:09 | Outpatient (CLI) | payer MEDICARE, SELFPAY ==
--- NOTE | 2019-09-14 11:36 | DI.RAD_ITS ---
EXAM: XR STANDING ALIGNMENT and XR left knee INDICATION: 1ST POST OP S/P TKA. COMPARISON: XR STANDING ALIGNMENT from 05/15/2019 TECHNIQUE: 2D digital imaging was performed. FINDINGS: The patient is now status post left total knee replacement. Orthopedic hardware appears in good posi tion. In the right knee there is moderate narrowing of the medial femoral tibial joint space. Peria rticular spurring is seen both medially and laterally. Right lower extremity measures 84.6 cm. The left lower extremity measures 86 cm.
== END 2019-09-14 11:29 ==
PROVIDERS: PCP Nurse Practitioner Family; Referring Provider Nurse Practitioner Family; Visit Provider Student in an Organized Health Care Education/Training Program
DX: Z96.652 Presence of left artificial knee joint (principal); M17.11 Unilateral primary osteoarthritis, right knee; Z47.1 Aftercare following joint replacement surgery; I10 Essential (primary) hypertension
CPT/HCPCS: 73560; 77073

== ENCOUNTER → 2019-10-12 11:42 | Outpatient (BNVA) | payer MEDICARE, SELFPAY | PROVIDERS: PCP Nurse Practitioner Family; Referring Provider Nurse Practitioner Family; Visit Provider Student in an Organized Health Care Education/Training Program | DX: Z47.1 Aftercare following joint replacement surgery (principal); Z96.652 Presence of left artificial knee joint; M17.11 Unilateral primary osteoarthritis, right knee ==

== ENCOUNTER 2019-10-24 09:24 | Inpatient (IN) | payer MEDICARE, SELFPAY ==
[2019-10-24] VITALS (16 sets, daily range): BP systolic 119–156; BP diastolic 49–80; PULSE 62–72; RESP 12–21; TEMP 36–36.8; O2SAT 95–98
[2019-10-24] MEDS: Acetaminophen 500 MG TAB 1000 MG PO (10:16)
[2019-10-24] MEDS: Gabapentin 300 MG CAP PO ×2 (10:16→21:46)
[2019-10-24] MEDS: Celecoxib 200 MG CAP 400 MG PO (10:16)
[2019-10-24] MEDS: Lactated Ringers 1,000 ML 80 ML IV ×2 (10:25→16:15)
[2019-10-24] MEDS: Bupivacaine 0.25% Pres-Free 30 ML VIAL ×2 (11:37→14:02)
[2019-10-24] MEDS: ceFAZolin 2 GM/50 ML BAG IVPB (12:37)
[2019-10-24] MEDS: Normal Saline 20 ML VIAL (14:02)
[2019-10-24] MEDS: Ketorolac 30 MG/ML VIAL (14:02)
[2019-10-24] MEDS: fentaNYL 100 MCG/2 ML VIAL IVP (15:30)
--- NOTE | 2019-10-24 16:59 | PT.INIE ---
Date of service: 10/24/19 Time of Service: 16:58 PT Notes Physical Therapy Inpatient Initial Evaluation Date: 10/24/2019 Referring Doctor: Cristian Kirk MD PT Orders: PT CONSULT: Status post Ortho surgery Precautions: Fall. Standard. WBAT on R LE. Patient Profile/Admitting Diagnosis: Patient is a 69-year-old female who is status post right knee total arthroplasty on postoperative day 0 due to primary osteoarthritis. PMHX: Medical History Borderline diabetes mellitus (Chronic) Hx of Clostridium difficile infection (Acute) ER visit Improved with oral antibx Hypertension (Chronic) Hypothyroidism (Chronic) Impaired renal function (Chronic) Pt reported Vaginal yeast infection (Acute) Surgical History History of arthroplasty of left knee (Acute 08/30/19) History of breast surgery (Acute) Blocked duct Left breast History of (Chronic) History of colonoscopy (Chronic) History of eye surgery (Acute) Right eye - detached retina Hx of dilation and curettage (Acute) Social History/Home Situation: Pt lives at home with her in a ranch style home. Three steps into the home with railing on the left. Notes she has a daughter and friends that are able to be with her when her is not home. Two dogs in the house. Equipment Owned/DME: two-wheeled walker Subjective: Patient states that she has not had anything to eat since 4:30 pm yesterday afternoon and is very much hungry upon arrival of PT. She however was willing to try out doing some walking to see how she does. She states that her is very much willing to help her out as she recovers. She reports that she did well with her outpatient physical therapy and hopes to go back to them for rehabilitation of the right knee upon discharge from this hospital. Objective: General Observation: IV on L UE. Castillo catheter in place. KIMBERLY stocking on L LE. Mental Status: alert and oriented x4 Pain: 0/10 pain with rest, 1-2/10 when standing ROM: Right Upper Extremity: Shoulder Flexion WFL. Shoulder abduction WFL. Elbow flexion WFL. Wrist flexion WFL. Opening and closing of hand WFL. Left Upper Extremity: Shoulder Flexion WFL. Shoulder abduction WFL. Elbow flexion WFL. Wrist flexion WFL. Opening and closing of hand WFL. Right Lower Extremity: Hip flexion WNL. Hip abduction WFL. Knee flexion 115 degrees. Knee extension -12 degrees. Able to perform 10 SLR with moderate difficulty. Ankle dorsiflexion WFL. Ankle plantarflexion WFL. Left Lower Extremity: Hip flexion WFL. Hip abduction WFL. Knee flexion WFL. Ankle dorsiflexion WFL. Ankle plantarflexion WFL. Strength: Right Upper Extremity: Shoulder flexors 5/5. Shoulder abductors 5/5. Elbow flexors 5/5. Elbow extensors 5/5. Livestock Commission Agent strong. Left Upper Extremity: Shoulder flexors 5/5. Shoulder abductors 5/5. Elbow flexors 5/5. Elbow extensors 5/5. Livestock Commission Agent strong. Right Lower Extremity: Hip flexors 4-/5. Hip abductors 4-/5. Knee flexors 3-/5. Knee extensors 3-/5. Ankle dorsiflexors 4/5. Ankle plantarflexors 4/5. Left Lower Extremity: Hip flexors 4/5. Hip abductors 5/5. Knee flexors 3-/5. Knee extensors 3-/5. Ankle dorsiflexors 5/5. Ankle plantarflexors 5/5. Sensation: Intact as to pain and pressure on bilateral lower extremities. Bed Mobility/Transfers: Rolling minimal assist Supine to sit minimal assist with HOB at the degrees Sit to supine minimal assist with HOB at the degrees Sit to stand CGA Stand to sit CGA Bed to chair CGA Chair to bed CGA Gait: Pt was able to ambulate WBAT 10 feet using a front-wheeled walker with CGA by PT. Step-to gait pattern. Decrease in knee flexion bilaterally. Reported pain on popliteal area on the right side. Denies headache, dizziness, and chest pain throughout session. Balance: Static Sitting: Normal Dynamic Sitting: Normal Static Standing: Fair Dynamic Standing: Fair Special Tests: Mobility Limitations Standardized Measure [facility] AM-PAC 6 clicks Basic Mobility Inpatient Short Form: Raw Score: 17 CMS Score: 51% deficit Informed Consent/Education: Patient instructed in purpose of PT consult and plan of care. HEP glute sets, quad sets, and ankle pumps. Assessment: Patient now presents with functional mobility decline, difficulty with walking, pain and discomfort, and risk for falling resulting from her recent right TKA. Pt is a 69-year-old female presenting s/p R TKA on postoperative day 0. At the time of the initial evaluation the patient presented with impairment level findings including decreased strength, impaired L knee ROM, impaired gait, impaired static and dynamic standing balance, and decreased activity tolerance Patient presents with clinical signs and symptoms consistent with current/admitting diagnoses that have resulted to mobility limitations, gait instability, generalized weakness, and impairment of motor control as demonstrated by the following impairment level findings: 1. Decreased strength to R LE hip and knee major muscle groups 2. Impaired standing balance 3. Impaired activity tolerance 4. Limitation of joint range of motion in R knee Impairments are contributing to the following functional limitations: 1. Dependent bed mobility skills 2. Increased dependence with transfers 3. Inability to safely ambulate without assistive device and physical assistance 4. Increase completion time for mobility ADL performance 5. Increased fall risk 6. Inability to negotiate steps alone safely Patient is assessed as a 15770 moderate complexity based on the following: History: Pt is a 69-year-old female presenting s/p R TKA Examination: Demonstrable impairment in strength, balance, and range of motion with underlying impairments and functional limitations as documented above Presentation: Evolving Decision Makin moderate complexity Goals: Goals X1 week 1. Sit-Stand independent 2. Stand-Sit independent 3. Bed-Chair independent 4. Chair-Bed independent 5. Independent gait on level surface with use of least restrictive device for at least 300 feet without report of pain nor dyspnea 6. Independent stair negotiation while holding onto bilateral rails for at least 5 steps without report of pain nor dyspnea 7. Independent with home exercise program 8. Good static and dynamic standing balance/tolerance Plan of Care/Treatment Plan: 1-2x/day, 7 days/week x 1 week. Plan of care has been reviewed with the BI ARCHITECT providing the service under Physical Therapy direction. Initiate Physical Therapy intervention for strengthening, bed mobility, transfers, gait, stairs, balance training, use of assistive device. DISCHARGE RECOMMENDATIONS: May benefit from skilled physical therapy services according to orthopedic surgeon's timeline recommendations. Patient will be educated and trained on home exercise program per TKA exercise protocol in preparation for outpatient physical therapy services. TREATMENT CODE/TIME: 01667 x 29 minutes beginning at 16:58 p.m. Thank you very much for this referral. Maggi Gruber PT, DPT, CLT [facility], [place]
--- NOTE | 2019-10-24 17:47 | W.PM.OP ---
Date of service: 10/24/19 Time of Service: 14:47 Operative Note Operative Note PRE-OP DIAGNOSIS: Right Knee Osteoarthritis POST-OP DIAGNOSIS: same PROCEDURE: Right Total Knee Replacement SURGEON: Cristian Kirk OCULAR CARE TECHNICIAN: Bee Carrera ANESTHESIA: regional and spinal ESTIMATED BLOOD LOSS: 150 PATHOLOGY: none sent TOURNIQUET TIME: 28 COMPLICATIONS: None Patient was transported to: PACU Patient's condition: stable Implants: 1. Depuy Attune Posterior Stabilized Femoral Component, Size 3 2. Depuy Attune Fixed Platform Tibial Component, Size 3 3. Depuy Attune 3x6 Fixed, Stabilized Poly 4. Depuy Attune Patellar Component, Size 35mm Indications: I have seen Shanta in clinic for symptoms of RIGHT knee arthritis, confirmed with radiographic findings. Shanta has exhausted nonoperative methods and was having significant limitations in daily function and desired better function and less pain. SHe has had a successful left knee arthroplasty earlier this year. I discussed the technical details of a knee replacement. I explained the risks of the procedure to include, but not limited to, bleeding, infection, pain, stiffness, fracture, damage to nerves and vessels, damage to muscles and tendons, loosening, need for repeat procedure, blood clot and cardiopulmonary demise. Despite these risks, Shanta elected to proceed. Findings: There was significant signs of arthritis throughout the knee with complete loss of cartilage over the medial femur. Procedure Description: Shanta was greeted in the preoperative holding area where the correct side was identified and marked. The consent was reviewed with the patient and signed. The history and physical was updated. All questions were answered. Preoperative mediacations were administered: Acetaminophen 1000mg, Celebrex 400mg, and Gabapentin 300mg. An adductor canal block was then administered by the anesthesia team in the PACU. Shanta was taken back to the operating room. A spinal anesthestic was then administered. The patient was placed into the supine position on the operating room table. A nonsterile tourniquet was placed high onto the leg but only used for cementing. Posts were placed for positioning during the procedure. All bony prominences were well padded. Prophylactic antibiotics in the form of Cefazolin were administered. 1g of Tranxemic Acid was given intravenously within 30 minutes of incision. The right leg was then prepped with Chloraprep and draped in a standard fashion with impervious stockinette. A second prep with Chloraprep was performed prior to application of Iodine impregnated skin protection. A timeout to confirm correct identity, side and site, procedure, allergies, anesthesia, and medical concerns was performed. With the knee in some flexion, a midline incision was made overlying the knee. Full thickness skin flaps were raised once the extensor mechanism was encountered. These were raised medially and laterally. Any bleeding was controlled with electrocautery. Once the extensor mechanism was fully exposed, a medial parapatellar arthrotomy was performed in a flexed position. All bleeding from the arthrotomy and the geniculate arteries was coagulated. A medial subperiosteal peel was performed with electrocautery to the midcoronal plane. The fat pad was removed while keeping the patellar tendon protected. The anterior distal femur synovium was removed for later visualization. The ACL and PCL were resected and the anterior horn of the lateral meniscus was transected. The knee was then flexed with the patella everted. Large osteophytes from the tibia were removed. Large osteophytes from the femur were removed. Using a step drill, and based on preoperative templating, the femoral canal was entered. This was done with a step drill without any difficulty. The intramedullary distal femoral cut guide was inserted, set to a 5 degree valgus cut and 9mm cut thickness. The distal femoral cut guide was then held in position and pinned. With the soft tissues protected, the distal cut was performed. This was passed over a few times to ensure a planar cut. I then turned attention to the tibia. The extramedullary guide was placed onto the leg. The distal aspect was slid medial to adjust for position of center of ankle and stay in line with shaft of the tibia. Approximately 3-5 degrees of posterior slope was kept in the proximal cutting guide. The center of the guide was aligned with the PCL. The stylus was used to assess cut thickness. The medial side, most involved side, was set for a 4mm cut. This was then held in position and pinned into place with 2 additional pins and a cross pin for stability. The medial and lateral collateral ligaments were protected and the cut was performed. With this completed, it was assessed and noted to be of appropriate dimensions. The guide was removed. A spacer block was inserted and the knee was brought into extension. The 6mm spacer block provided full extension, without hyperextension and with stability of both the medial and lateral collateral ligaments was assessed. The pins from the femur and the tibia were then removed. The distal femur was then sized. The anterior stylus was placed onto the lateral ridge of the anterior femur. This indicated a size 3 femur. The external rotation of the guide was adjusted to 3 degrees to match the epicondylar axis, perpendicular to Otf?s line. The 4-in-1 cutting guide was the placed. The posterior medial femur cut was evaluated and appeared of good thickness. The spacer block was inserted underneath the cutting guide and stability was confirmed in 90 degrees of flexion. An demetri wing was used to confirm appropriate position of the anterior cut to avoid notching. This cutting guide was ensured to be flush on the cut surface and then pinned into place with headed pins. While protecting the soft tissues, quad tendon, and collateral ligaments, the anterior and posterior cuts were performed with a saw. The central two pins were removed and the posterior and anterior chamfers were cut next. The notch-cutting guide was placed. This was pinned to lateralize the femoral component as much as possible while keeping it flush on the cut surface. This was then pinned into position. A reciprocating saw was used to make the notch cut. A rasp smoothed the cut surfaces. A trial posterior stabilized femoral component was then inserted, impacted down to the cut surfaces, and the lug holes were drilled. A provisional trial tibial component was placed and the knee was brought through range of motion. There was noted to be excellent extension and flexion. There was no significant instability. The patella was tracking without thumbs. The tibial cut surface was fully exposed. The medial and lateral menisci were removed. The tibia was then sized as a 3. The tibia had been previously marked during trialing to correspond to the center of the tibial component to help with rotation. The trial was aligned to this bee, approximately rotated to the medial 1/3rd of the tibial tubercle. The trial was pinned into place. The tibia was prepared with a reamer and a keel punch. The knee was then brought into extension and the patella was measured as 24mm. Using the patellar clamp and cut guide, this was resected to a flat surface with at least 13mm of thickness remaining. The size 35 patella fit the best. This was oriented and then clamped into position. The lugs were drilled. The trial components were removed. The final components, except for the polyethylene were opened on the back table. The periosteal and capsular tissues, especially posteriorly, around the knee were then systematically injected with a periarticular cocktail consisting of 50cc 0.25% Marcaine, 30mg Ketorolac, 20cc of Exparal and 50cc of injectable saline. The tourniquet was then inflated to 275mmHg. The knee was thoroughly irrigated with a pulse lavage and dried. On the back table, with the implants opened, the cement was mixed. 2 batches of antibiotic laden cement were prepared with vacuum assistance. After the cement was ready a small amount was placed on to the back side of the tibial component at the keel. A small amount was placed onto the posterior flange of the femur. Cement was manual pressurized and impregnated into the cut surface of the tibia. The tibial component was then inserted into the cut surface and impacted into position. Excess cement was removed and the component was reimpacted. Again, excess cement was removed and our attention was then turned to the femur. The femoral cut surface was once again dried and cement was manually impacted into the cut surface. The femoral component was lined with the lug holes and impacted. Excess cement was removed. It was ensured to be down against the cut surface. The trial polyethylene was then inserted and the leg was brought out into full extension for the duration of the cement curing process, approximately 15min. Cement was lastly manually impacted into the cut surface of the patella and the patellar button was clamped into position and held. During this process attention was turned to the gutters of the knee and for all interfaces for any excess cement. While the cement was hardening, the knee was irrigated with Irrisept chlorhexadine solution. This was allowed to sit in the knee for 3 minutes. After the cement had finally cured, approximately 15min, the clamp was removed from the patella and the knee was taken through range of motion. A size 6mm polyethylene component provided the best range of motion and stability with less than 2mm gapping with medial and lateral stress and full extension without significant hyperextension. The patella was tracking with a no-thumbs technique. The trial poly was removed and once again the knee was checked for any loose, excess, or errant cement. The poly component was then inserted and impacted into position after cleaning and drying the tibial tray. The capsule was then reapproximated with a No. 1 Vicryl at multiple locations. The capsule was finally closed with a No. 2 Stratafix, barbed suture. The tourniquet was then released and the arthrotomy appeared watertight without significant bleeding. The second dosing of 1g TXA was started. Deep tissues were then reapproximated with 0 Vicryl and 2-0 Vicryl. The skin was closed with a running 3-0 Monocryl in a subcuticular fashion. This was reinforced with skin glue. A Mepilex silver dressing was applied along with a owpo-wy-emoyi ZAIDA wrap. A CryoCuff was applied. Shanta was transferred to the hospital bed without difficulty an suffering no apparent complication. Shanta has a good prognosis. Physical therapy will start today and without restrictions, weight-bearing as tolerated. Aspirin 81mg BID will be used for DVT prophylaxis.
[2019-10-24] MEDS: ceFAZolin 1 GM/50 ML BAG IVPB (18:19)
[2019-10-24] MEDS: Naproxen 500 MG TAB PO (20:00)
[2019-10-24] MEDS: Aspirin E.C. 81 MG TABEC PO (20:00)
[2019-10-24] MEDS: oxyCODONE 5 MG TAB PO (22:43)
[2019-10-25] MEDS: ceFAZolin 1 GM/50 ML BAG IVPB ×2 (02:18→09:41)
[2019-10-25 03:15] VITALS: BP 126/75; PULSE 66; RESP 16; TEMP 36.5; O2SAT 95
[2019-10-25] MEDS: Lactated Ringers 1,000 ML 80 ML IV (04:20)
[2019-10-25] MEDS: Levothyroxine 25 MCG TAB PO (06:14)
[2019-10-25 07:54] VITALS: BP 128/77; PULSE 64; RESP 17; TEMP 36.5; O2SAT 95
[2019-10-25] MEDS: Metoprolol CR 100 MG TABCR PO (07:54)
[2019-10-25] MEDS: Aspirin E.C. 81 MG TABEC PO (07:54)
[2019-10-25] MEDS: amLODIPine 10 MG TAB PO (07:54)
[2019-10-25] MEDS: Pantoprazole 40 MG TABCR PO (07:54)
[2019-10-25] MEDS: hydroCHLOROthiazide 25 MG TAB PO (07:54)
[2019-10-25] MEDS: Naproxen 500 MG TAB PO (07:54)
--- NOTE | 2019-10-25 08:10 | DSE_ITS ---
Date of service: 10/25/19 Time of Service: 08:11 DS: Diagnosis Discharge Diagnosis (1) Degenerative joint disease of right knee: Status: Chronic Discharge Plan Disposition Patient Disposition: HOME Condition: Good Discharge Details Reason For Visit: R Knee DJD Admit Date/Time: 10/24/19 09:24 Admit Provider: Cristian Kirk Attending Provider: Cristian Kirk Primary Care Provider: Brandon Bowden Hospital Course Hospital Course: Patient was admitted to the medical/surgical floor following the procedure. It was tolerated well without any notable medical, surgical, or anesthetic complications. Mobilization began postoperatively. The pérez catheter was removed and voiding spontaneously. Vitals were stable. Physical therapy worked with the patient and was cleared for discharge home. No acute medical issues. Home Meds and New Rx's Prescriptions: New aspirin 81 mg tablet,delayed release (DR/EC) 81 mg PO BID Qty: 60 RF: 0 acetaminophen 500 mg tablet 1,000 mg PO Q8H PRN (Reason: pain) Qty: 90 RF: 3 gabapentin 300 mg capsule 300 mg PO QHS Qty: 7 RF: 0 oxycodone 5 mg tablet 5 mg PO Q4H Qty: 15 RF: 0 Continued metoprolol succinate 200 mg cap,[facility],ER 24hr dose pack 100 mg PO DAILY RF: 0 amlodipine 10 mg tablet 10 mg PO DAILY RF: 0 levothyroxine 25 mcg capsule 25 mcg PO DAILY RF: 0 hydrochlorothiazide 25 mg Tablet 25 mg PO DAILY RF: 0 pantoprazole 40 mg tablet,delayed release (DR/EC) 40 mg PO DAILY Qty: 30 RF: 0 naproxen 500 mg tablet 500 mg PO BID PRN (Reason: pain) Qty: 60 RF: 3 Changed aspirin [Adult Low Dose Aspirin] 81 mg tablet,delayed release (DR/EC) 81 mg PO BID Qty: 0 RF: 0 Discontinued acetaminophen 500 mg tablet 1,000 mg PO Q8H PRN (Reason: pain) Qty: 90 RF: 3 Discharge Instructions Additional Instructions: Dr. Kirk?s Total Knee Discharge Instructions Activity: The most important activity is to walk. You should try to take short walks a few times a day. It is important that when resting you work on keeping the knee straight. Avoid putting a pillow behind the knee as this will encourage flexion. Work on range of motion exercises as provided by Physical Therapy. - Start outpatient physical therapy within 2 weeks. - You should wear the KIMBERLY hose on both legs for 2 weeks. Dressing: Keep the surgical dressing in place for at least one week. After the first week it may be removed and replace with light gauze and tape or nothing. It may get wet after 3 days but avoid soaking the dressing. If it gets wet, just lightly pat dry. Medications: - You should take Tylenol and anti-inflammatory Naproxen as your primary pain control medications - You have been prescribed a stronger pain medication Oxycodone for breakthrough pain, take as needed as prescribed. - You have also been prescribed a stomach acid reduction agent Pantoprozole to help reduce stomach acid and reflux. - You will be taking Aspirin 81mg twice a day for DVT prevention unless instructed otherwise. - If you have constipation you should take Colace or Miralax (both [id number]). It takes most people 3-4 days to have a bowel movement. Follow-up: 2 weeks Referrals: Cristian Kirk MD [ [facility] STAFF PHYSICIAN] - Activity:: Activity as Tolerated Equipment/Supplies:: No Equipment Needed Diet:: As Tolerated Discharge Orders Discharge Orders: Discharge Order (Routine); Ordered 10/25/19 Ordered By: Cristian Kirk DS: Summary Status at Discharge Functional status at discharge: uses cane/walker Overall status at discharge: patient is progressing back to baseline Mental Status: mental status grossly normal Speech and Movement: speech and movement normal Mood: congruent mood Affect: normal affect Exam Psych Mental Status: mental status grossly normal Speech and Movement: speech and movement normal Mood: congruent mood Affect: normal affect DS: Data Vitals/I&O Vitals and I&O: Vital Signs Temperature 36.5 C 10/25/19 03:15 Temperature Source Tympanic 10/25/19 03:15 Pulse 66 10/25/19 03:15 Pulse Rhythm Regular 10/25/19 01:05 Respiratory Rate 16 10/25/19 03:15 Respiratory Effort Non-Labored 10/25/19 01:05 Respiratory Depth Normal 10/25/19 01:05 Respiratory Pattern Normal 10/25/19 01:05 Blood Pressure 126/75 10/25/19 03:15 Pulse Oximetry 95 10/25/19 03:15 Respiratory End-tidal CO2 36 10/24/19 15:35 Oxygen Delivery Method Room Air 10/25/19 03:15 Oxygen Flow Rate 0 10/25/19 03:15 Pain Level 3 10/25/19 03:15 Intake & Output 10/24/19 10/24/19 10/25/19 11:59 23:59 11:59 Intake Total 1334 / 1334 1375.334 / 1375.334 Output Total 1000 / 1000 2225 / 2225 Balance 334 / 334 -849.666 / -849.666 Weight 87.2 kg 87.2 kg Intake: IV 1064 / 1064 1135.334 / 1135.334 Oral 270 / 270 240 / 240 Output: Urine 850 / 850 2225 / 2225 Estimated Blood Loss 150 / 150 Other: Urine Color Yellow Yellow Urine Appearance Clear Clear Emesis Description None PFSH Social History Smoking/Tobacco Use Status: Never Alcohol Intake: current Alcohol Intake frequency: holidays/special occasions only Drug use: Never Substance use type: does not use Current gender identity: female Nisha/Faith: Restorationist Agree to transfusion: No
--- NOTE | 2019-10-25 08:13 | INITIAL_ITS ---
Care Management Initial Assess REASON FOR HOSPITALIZATION:: R Knee DJD PAST MEDICAL HISTORY/PAST SURGICAL HISTORY:: Borderline DM, clostridium difficule infection, hypertension, hypothyroidism, impaired renal function, vaginal yeast infection, arthroplasty of left knee, hx of breast surgery for blocked duct, , colonoscopy, eye surgery, dilation and curettage PREVIOUS FUNCTIONAL STATUS/SOCIAL/FAMILY SUPPORTS:: Shanta resides in [place] with her , Catalino. Their daughter resides nearby in [place]. Shanta is independent at baseline in the community. CURRENT FUNCTIONAL STATUS:: Shanta is sitting on the side of her bed when meets with her. She reports recently having her other knee done and being confident about discharge and recovery. ADVANCE DIRECTIVES:: On file at [facility]. Catalino, as agent, daughter, Juhi as alternate. NO BLOOD TRANSFUSIONS. Has patient been provided with information about the portal?: Yes Did the patient sign up for the portal?: No CODE STATUS:: Full Code INSURANCE COVERAGE / FINANCIAL ISSUES:: Medicare CURRENT HOME/COMMUNITY SERVICES/EQUIPMENT:: FWW. PRIMARY CARE PHYSICIAN:: RUSSELL Gilliland POTENTIAL DISCHARGE NEEDS:: Follow up appointments. PATIENT/FAMILY EDUCATION NEEDS:: Review discharge instructions, discuss Ask Me Three. ANTICIPATED BARRIERS TO DISCHARGE:: None identified. TRANSPORTATION:: Via private vehicle with her , Catalino. PLAN:: Shanta will return home when ready per MD. She will follow up with Orthopedics and her plan of care as prescribed including medication recommendations and activity restrictions. She will transport via private vehicle with her , Catalino.
--- NOTE | 2019-10-26 12:22 | PT.INTREAT ---
PT Notes Visit Reasons: R Knee DJD Inpatient Physical Therapy Treatment Note [facility] Date: 10/25/2019 SUBJECTIVE: Shanta states that she is ready to go home. OBJECTIVE: [] BED MOBILITY/TRANSFERS Sit-stand: CGA Stand-sit: CGA GAIT Assistive Device: FWW Weight bearing: AT Assist: SBA Distance: 150' THEREX: global LE strength and stabilization. Focus on quads. See flowsheet, ROM of knee. STAIRS: ascend/descend 3, 4 steps and 2, 6' steps using both railings and step to pattern. ASSESSMENT: tolerated session well. Improved ROM per subjective report. PLAN: possible d/c to home with later this am. TREATMENT CODE/TIME: 35 min. [id number], [id number]
--- NOTE | 2019-10-26 18:22 | INDS_ITS ---
Date of service: 10/26/19 PT Notes Visit Reasons: R Knee DJD Physical Therapy Inpatient Discharge Summary Date: 10/26/2019 Dates of service: 10/24/2019 through 10/25/2019 This is a clinical summary of care provided on the duration of dates listed above. No charge was made in the completion of this documentation. Referring Doctor: Cristian Kirk MD PT Orders: PT CONSULT: Status post Ortho surgery Precautions: Fall. Standard. WBAT on R LE. Patient Profile/Admitting Diagnosis: Patient is a 69-year-old female who is status post right knee total arthroplasty on postoperative day 0 due to primary osteoarthritis. PMHX: Medical History Borderline diabetes mellitus (Chronic) Hx of Clostridium difficile infection (Acute) ER visit Improved with oral antibx Hypertension (Chronic) Hypothyroidism (Chronic) Impaired renal function (Chronic) Pt reported Vaginal yeast infection (Acute) Surgical History History of arthroplasty of left knee (Acute 08/30/19) History of breast surgery (Acute) Blocked duct Left breast History of (Chronic) History of colonoscopy (Chronic) History of eye surgery (Acute) Right eye - detached retina Hx of dilation and curettage (Acute) Social History/Home Situation: Pt lives at home with her in a ranch style home. Three steps into the home with railing on the left. Notes she has a daughter and friends that are able to be with her when her is not home. Two dogs in the house. Equipment Owned/DME: two-wheeled walker Subjective: Patient states that she has not had anything to eat since 4:30 pm yesterday afternoon and is very much hungry upon arrival of PT. She however was willing to try out doing some walking to see how she does. She states that her is very much willing to help her out as she recovers. She reports that she did well with her outpatient physical therapy and hopes to go back to them for rehabilitation of the right knee upon discharge from this hospital. Objective: General Observation: NT Mental Status: NT Pain: NT ROM: Right Upper Extremity: Shoulder Flexion WFL. Shoulder abduction WFL. Elbow flexion WFL. Wrist flexion WFL. Opening and closing of hand WFL. Left Upper Extremity: Shoulder Flexion WFL. Shoulder abduction WFL. Elbow flexion WFL. Wrist flexion WFL. Opening and closing of hand WFL. Right Lower Extremity: Hip flexion WNL. Hip abduction WFL. Knee flexion 115 degrees. Knee extension -12 degrees. Able to perform 10 SLR with moderate difficulty. Ankle dorsiflexion WFL. Ankle plantarflexion WFL. Left Lower Extremity: Hip flexion WFL. Hip abduction WFL. Knee flexion WFL. Ankle dorsiflexion WFL. Ankle plantarflexion WFL. Strength: Right Upper Extremity: Shoulder flexors 5/5. Shoulder abductors 5/5. Elbow flexors 5/5. Elbow extensors 5/5. Welder Oxyhydrogen strong. Left Upper Extremity: Shoulder flexors 5/5. Shoulder abductors 5/5. Elbow flexors 5/5. Elbow extensors 5/5. Welder Oxyhydrogen strong. Right Lower Extremity: Hip flexors 4-/5. Hip abductors 4-/5. Knee flexors 3-/5. Knee extensors 3-/5. Ankle dorsiflexors 4/5. Ankle plantarflexors 4/5. Left Lower Extremity: Hip flexors 4/5. Hip abductors 5/5. Knee flexors 3-/5. Knee extensors 3-/5. Ankle dorsiflexors 5/5. Ankle plantarflexors 5/5. Sensation: Intact as to pain and pressure on bilateral lower extremities. Bed Mobility/Transfers: Rolling independent Supine to sit independent Sit to supine independent Sit to stand SBA Stand to sit SBA Bed to chair SBA Chair to bed SBA Gait: Pt was able to ambulate WBAT on 75 feet on R LE using a front-wheeled walker with CGA. Step-to gait pattern. Decrease in knee flexion bilaterally. Patient tolerated three 4 inch steps and two 6 inch steps while holding onto bilateral rails with step to gait pattern requiring SBA. Balance: Static Sitting: Normal Dynamic Sitting: Normal Static Standing: Fair Dynamic Standing: Fair Assessment: Patient presented with functional mobility decline, difficulty with walking, pain and discomfort, and risk for falling resulting from her recent right TKA. Pt is a 69-year-old female presenting s/p R TKA on postoperative day 0. At the time of the initial evaluation the patient presented with impairment level findings including decreased strength, impaired L knee ROM, impaired gait, impaired static and dynamic standing balance, and decreased activity tolerance. Patient demonstrated significant functional mobility improvements during this episode of care. Patient presented with clinical signs and symptoms consistent with current/admitting diagnoses that have resulted to mobility limitations, gait instability, generalized weakness, and impairment of motor control as demonstrated by the following impairment level findings: 1. Decreased strength to R LE hip and knee major muscle groups 2. Impaired standing balance 3. Impaired activity tolerance 4. Limitation of joint range of motion in R knee Impairments contributed to the following functional limitations: 1. Dependent bed mobility skills 2. Increased dependence with transfers 3. Inability to safely ambulate without assistive device and physical assistance 4. Increase completion time for mobility ADL performance 5. Increased fall risk 6. Inability to negotiate steps alone safely Goals: Goals X1 week 1. Sit-Stand independent NOT MET 2. Stand-Sit independent NOT MET 3. Bed-Chair independent NOT MET 4. Chair-Bed independent NOT MET 5. Independent gait on level surface with use of least restrictive device for at least 300 feet without report of pain nor dyspnea NOT MET 6. Independent stair negotiation while holding onto bilateral rails for at least 5 steps without report of pain nor dyspnea NOT MET 7. Independent with home exercise program NOT MET 8. Good static and dynamic standing balance/tolerance NOT MET DISCHARGE RECOMMENDATIONS: May benefit from skilled physical therapy services according to orthopedic surgeon's timeline recommendations. Patient will be educated and trained on home exercise program per TKA exercise protocol in preparation for outpatient physical therapy services. TREATMENT CODE/TIME: IL Thank you very much for this referral. Maggi Gruber PT, DPT, CLT [facility] [place], [place]
== END 2019-10-25 11:33 | disposition home or self-care (01) | DRG 470 ==
LOC: PDS 09:25 → MS 15:57
PROVIDERS: Admitting Provider Student in an Organized Health Care Education/Training Program; PCP Nurse Practitioner Family; Visit Provider Student in an Organized Health Care Education/Training Program
PROC: 0SRD0J9 Replacement of Left Knee Joint with Synthetic Substitute, Cemented, Open Approach (ICD-10-PCS; CPT 27447; principal; 2019-10-24 15:00)
PROC: 0SRD0J9 Replacement of Left Knee Joint with Synthetic Substitute, Cemented, Open Approach (ICD-10-PCS; CPT 27570; 2019-10-24 15:00)
DX: M17.11 Unilateral primary osteoarthritis, right knee (principal); M25.561 Pain in right knee; Z96.651 Presence of right artificial knee joint; G89.18 Other acute postprocedural pain; E03.9 Hypothyroidism, unspecified; Z96.652 Presence of left artificial knee joint; I10 Essential (primary) hypertension
CPT/HCPCS: 27447; 76942; 97110; 97162; 97530; NC; J0690; J1100; J1885; J2001; J2250; J3010

== ENCOUNTER 2019-11-10 09:35 | Outpatient (CLI) | payer MEDICARE, SELFPAY ==
--- NOTE | 2019-11-10 09:00 | DI.RAD_ITS ---
EXAM: XR KNEE RT 1V CLINICAL HISTORY: f/u R TKA TECHNIQUE: COMPARISON: XR KNEE LT 1V from 09/14/2019 FINDINGS: Single lateral view was obtained and shows total knee joint replacement position. Components appear well seated. No other bony abnormality seen. IMPRESSION:
--- NOTE | 2019-11-10 09:00 | DI.RAD_ITS ---
EXAM: XR STANDING ALIGNMENT CLINICAL HISTORY: f/u R TKA COMPARISON: XR STANDING ALIGNMENT from 09/14/2019 FINDINGS: AP standing alignment views were obtained. There are mild degenerative changes of both hips with pro minent calcific or osseous densities present adjacent to the greater trochanters of the femurs bilate rally. There are bilateral total knee joint replacements in position.
== END 2019-11-10 09:55 ==
PROVIDERS: PCP Nurse Practitioner Family; Referring Provider Nurse Practitioner Family; Visit Provider Student in an Organized Health Care Education/Training Program
DX: M17.11 Unilateral primary osteoarthritis, right knee (principal); Z96.653 Presence of artificial knee joint, bilateral; M16.0 Bilateral primary osteoarthritis of hip; Z47.1 Aftercare following joint replacement surgery; I10 Essential (primary) hypertension
CPT/HCPCS: 73560; 77073

== ENCOUNTER → 2019-12-18 11:57 | Outpatient (BNVA) | payer MEDICARE, SELFPAY | PROVIDERS: PCP Nurse Practitioner Family; Referring Provider Nurse Practitioner Family; Visit Provider Student in an Organized Health Care Education/Training Program | DX: M17.11 Unilateral primary osteoarthritis, right knee (principal); Z47.1 Aftercare following joint replacement surgery; Z96.652 Presence of left artificial knee joint ==

== ENCOUNTER → 2020-01-08 11:08 | Outpatient (BNVA) | payer MEDICARE, SELFPAY | PROVIDERS: PCP Nurse Practitioner Family; Referring Provider Nurse Practitioner Family; Visit Provider Student in an Organized Health Care Education/Training Program | DX: M17.11 Unilateral primary osteoarthritis, right knee (principal); Z47.1 Aftercare following joint replacement surgery; Z96.652 Presence of left artificial knee joint ==

== ENCOUNTER 2020-01-12 11:07 | Outpatient (REF) | payer MEDICARE, SELFPAY ==
[2020-01-12 16:40] LABS: HCT 42.9 % (36.0-46.0); HGB 14.1 g/dL (12.0-15.5); Mean Corp. HGB Concentration 32.9 g/dL (32.0-36.0); Mean Corpuscular Hemoglobin 27.1 pg (27.0-33.0); Mean Corpuscular Volume 82.5 fL (80-95); Mean Platelet Volume 11.1 fL (8.0-11.0); Platelet Count 235 x1000/uL (130-400); RBC Distribution Width 13.6 % (11.7-14.6); White Blood Cell Count 5.56 k/cumm (4.4-10.8)
[2020-01-12 17:06] LABS: ALT 24 U/L (14-59); AST 26 U/L (15-37); Albumin 3.6 g/dL (3.4-5.0); Alkaline Phosphatase 85 U/L (46-116); Anion Gap 7.2 mmol/L (3-11); BUN 17 mg/dL (7-18); Bilirubin, Total 0.8 mg/dL (0.2-1.0); CO2 32.8 mmol/L (21.0-32.0); CREATININE 0.79 mg/dL (0.55-1.02); Calcium 9.2 mg/dL (8.5-10.1); Calculated LDL 149 mg/dL (<100); Chloride 103 mmol/L (98-107); Cholesterol 216 mg/dL (<200); Glucose 98 mg/dL (74-106); HDL Cholesterol 48 mg/dL (40-60); Sodium 143 mmol/L (136-145); TSH (W/Ref FT4) 1.82 uIU/mL (0.36-3.74); Total Protein 6.7 g/dL (6.4-8.2); Triglyceride 98 mg/dL (<150)
== END 2020-01-12 11:27 ==
LOC: NCHCN 11:07
PROVIDERS: PCP Nurse Practitioner Family; Visit Provider Nurse Practitioner Family
DX: I10 Essential (primary) hypertension (principal); R73.03 Prediabetes; E03.9 Hypothyroidism, unspecified; E78.5 Hyperlipidemia, unspecified
CPT/HCPCS: 80053; 80061; 85027; 84443

== ENCOUNTER 2020-09-03 18:42 | Outpatient (REF) | payer MEDICARE, SELFPAY ==
[2020-09-03 18:26] LABS: Bilirubin Negative (Negative); Blood Trace-lysed (Negative); Clarity Cloudy (Clear); Glucose Negative (Negative); Ketones Trace mg/dL (Negative); Leukocyte Esterase Large (Negative); Nitrite Negative (Negative); Urobilinogen 0.2 EU/dL (Up TO 0.2)
[2020-09-03 18:35] LABS: Bacteria Few HPF (Negative); C & S Indicated? No/Sq. Contamination; Crystals Negative HPF (Negative); Epithelial Cells Many HPF (Negative); Mucus Negative (Negative); Other Cells Mod Transitional (Negative); WBC >50 HPF (0-5)
== END 2020-09-03 19:02 ==
LOC: NCHCN 18:42
PROVIDERS: PCP Nurse Practitioner Family; Visit Provider Nurse Practitioner Family
DX: R32 Unspecified urinary incontinence (principal)
CPT/HCPCS: 81003; 81015

== ENCOUNTER 2020-09-20 15:16 | Outpatient (REF) | payer MEDICARE, SELFPAY ==
[2020-09-20 13:36] LABS: BUN 21 mg/dL (7-18); CREATININE 0.7 mg/dL (0.55-1.02); Calcium 9.1 mg/dL (8.5-10.1); Chloride 105 mmol/L (98-107); Glucose 94 mg/dL (74-106); Potassium 4.2 mmol/L (3.5-5.1); Sodium 141 mmol/L (136-145)
== END 2020-09-20 15:36 ==
LOC: NCHCN 15:16
PROVIDERS: PCP Nurse Practitioner Family; Visit Provider Nurse Practitioner Family
DX: E87.6 Hypokalemia (principal); I10 Essential (primary) hypertension
CPT/HCPCS: 80048

== ENCOUNTER 2020-12-10 14:40 | Inpatient (IN) | payer MEDICARE, SELFPAY ==
[2020-12-10] VITALS (54 sets, daily range): BP systolic 143–183; BP diastolic 48–90; PULSE 60–92; RESP 8–27; TEMP 36.6–37.2; O2SAT 95–99
--- NOTE | 2020-12-10 14:30 | RT.EKG_ITS ---
APPROVED REPORT Exam: Resting ECG Patient Location: E HR:76 bpm ECG Measurements Heart Rate 76 AXIS NE 131 P 77 QRSd 150 QRS -17 QT 432 T 84 QTc 488 Conclusion Sinus rhythm...normal P axis, V-rate 60- 99 Left bundle branch block...QRSd>120, broad/notched R ST elevation secondary to IVCD...Multiple VCG criteria I have reviewed and interpreted ECG and agree with software generated interpretation.
[2020-12-10 15:14] LABS: Abs Immature Grans 0.02 10^3/uL (0.0-0.06); Absolute Basophil Count 0.05 10^3/uL (0.0-0.2); Absolute Eosinophil Count 0.25 10^3/uL (0.0-0.7); Absolute Lymphocyte Count 2.23 10^3/uL (1.2-3.4); Absolute Monocyte Count 0.56 10^3/uL (0.1-0.8); Absolute Neutrophil Count 4.53 10^3/uL (1.2-6.7); Basophils % 0.7; Eosinophils % 3.3; HCT 43.6 % (36.0-46.0); HGB 14.3 g/dL (11.2-15.7); Immature Grans % 0.3; Lymphocytes % 29.2; MCH 27.1 pg (27.0-33.0); MCHC 32.8 % (32.0-36.0); MCV 82.6 fL (80-95); MPV 10.2 fL (8.0-11.0); Monocytes % 7.3; Neutrophils % 59.2; Nucleated RBC 0 %; Platelet Count 236 10^3/uL (130-400); RBC 5.28 10^6/uL (3.93-5.22); RDW 13.7 % (11.7-14.6); RDW-SD 41.2 fL; WBC 7.64 10^3/uL (4.4-10.8)
--- NOTE | 2020-12-10 15:29 | W.ED.GENAD ---
Discharge Plan Disposition Patient Disposition: [facility] INPATIENT Condition: Good Discharge Details Clinical Impression: Chest discomfort, Left bundle branch block (LBBB) Admit Date/Time: 12/10/20 21:29 Admit Provider: Frandy Solitario Attending Provider: Frandy Solitario Primary Care Provider: Brandon Bowden ED Provider: Cheikh John Discharge Data Discharge Date/Time-TO BE ENTERED AT DEPARTURE: 12/10/20 23:20 Medical Decision Making <ATIF Mensah - Last Filed: 12/11/20 18:08> Patient is alert, oriented, of decisional capacity, it is concerning regarding a new onset left bundle branch block with her posterior thorax pain Case was discussed with Rowena on-call ATIF for cardiology at [facility] and the patient was signed out pending cooker sulfate consultation to Dr. John D-dimer is also pending He will follow up on the test but patient will likely need admission to the hospital Patient is currently chest pain-free Her blood pressure is stable She is alert and oriented Patient was given 324 of aspirin Differential Diagnosis Differential Diagnosis: Angina, pulmonary embolism, pneumonia, ST elevation ID <Cheikh John MD - Last Filed: 12/10/20 23:36> 2012 -- Care signed out by ATIF Andrade plan to follow-up on labs, cardiology consult, reassess patient. Labs reviewed, D-dimer is elevated, proceeded to CT of the chest. Initial troponin is negative. CT of the chest was interpreted by radiology: IMPRESSION: 1. No evidence for a pulmonary embolism. No thoracic aortic aneurysm or dissection. No evidence for right heart strain. 2. Gastroesophagitis. Tiny hiatal hernia. 3. Large, partially imaged, multi-cystic mass within/replacing the right kidney, which could represent multiple cysts. However, a solid neoplasm cannot be excluded. This warrants further evaluation with a renal mass protocol CT or MRI. 4. 1.5 x 1.5 cm cystic lesion within the pancreatic head, which could represent sequela prior pancreatitis. However, a pancreatic neoplasm could also have this appearance. This warrants further evaluation with an MRI/MRCP study. Patient has new left bundle branch block on EKG plan was to discuss with cardiology. Cardiology called and noted left bundle branch block present, scarbosa criteria not met. There is concern for unstable angina and they recommend initiating treatment with heparin bolus and infusion as well as Plavix rather milligram, this is in addition to aspirin already provided. Given initial negative troponin, they hospitalizing at [facility] for rule out ACS. Plan to hospitalize in ICU. HPI <ATIF Mensah - Last Filed: 12/11/20 18:08> This 70-year-old female patient is requesting a work presents with headache ER return with history of hypertension, hypothyroidism who presents for evaluation of a intermittent palpitation and left scapular pain. Patient states when she gets the palpitations, she develops left scapular pain. She denies any anterior chest wall pain. She states that her left arm feels heavy . She denies any weakness, numbness, tingling. She denies any nausea or vomiting. She denies any vision change or current headache. She denies any speech or sensation change. She denies any new calf pain or swelling although she does have some mild swelling to bilateral lower extremities. She denies recent flights, surgeries, long drives. She denies any current shortness of breath. General Date/Time Provider Initiated Documentation: 12/10/20 14:47. Related Data Home Medications Medication Instructions Recorded Confirmed amlodipine 10 mg tablet 10 mg PO DAILY 01/18/19 12/10/20 levothyroxine 25 mcg capsule 25 mcg PO DAILY 01/18/19 12/18/19 acetaminophen 1,000 mg PO Q8H PRN #90 tab 10/25/19 12/10/20 aspirin [Adult Low Dose Aspirin] 81 mg PO BID #0 tab 10/25/19 12/18/19 gabapentin 300 mg PO QHS #7 cap 10/25/19 12/18/19 naproxen 500 mg PO BID PRN #60 tab 10/25/19 12/18/19 pantoprazole 40 mg PO DAILY #30 tab 10/25/19 12/18/19 oxycodone 5 mg tablet 5 mg PO BID #10 tab MDD 10mg 11/10/19 12/18/19 aspirin 81 mg PO DAILY 12/10/20 12/10/20 hydrochlorothiazide 12.5 mg PO DAILY #0 tab 12/11/20 12/18/19 metoprolol succinate [Toprol XL] 150 mg PO DAILY #45 tab 12/11/20 Previous Rx's Medication Instructions Recorded acetaminophen 1,000 mg PO Q8H PRN #90 tab 10/25/19 aspirin [Adult Low Dose Aspirin] 81 mg PO BID #0 tab 10/25/19 gabapentin 300 mg PO QHS #7 cap 10/25/19 naproxen 500 mg PO BID PRN #60 tab 10/25/19 pantoprazole 40 mg PO DAILY #30 tab 10/25/19 oxycodone 5 mg tablet 5 mg PO BID #10 tab MDD 10mg 11/10/19 hydrochlorothiazide 12.5 mg PO DAILY #0 tab 12/11/20 metoprolol succinate [Toprol XL] 150 mg PO DAILY #45 tab 12/11/20 Allergies Allergy/AdvReac Type Severity Reaction Status Date / Time erythromycin base Allergy Severe tongue Verified 12/10/20 14:53 swelling/difficultly breathing Penicillins Allergy Unknown Verified 12/10/20 14:53 adhesive tape Allergy rash/bloody Verified 12/10/20 14:53 skin latex AdvReac itching/break Verified 12/10/20 14:53 out rash General Stated Complaint: Chest Pain ILENE: 2 <Cheikh John MD - Last Filed: 12/10/20 23:36> This 70-year-old female patient is requesting a work presents with headache ER return with history of hypertension, hypothyroidism who presents for evaluation of a intermittent palpitation and left scapular pain. Patient states when she gets the palpitations, she develops left scapular pain. She denies any anterior chest wall pain. She states that her left arm feels heavy . She denies any weakness, numbness, tingling. She denies any nausea or vomiting. She denies any vision change or current headache. She denies any speech or sensation change. She denies any new calf pain or swelling although she does have some mild swelling to bilateral lower extremities. She denies recent flights, surgeries, long drives. She denies any current shortness of breath. Review of Systems <ATIF Mensah - Last Filed: 12/11/20 18:08> Narrative: Review of systems obtained x7 aside from where indicated in [facility] PFSH <ATIF Mensah - Last Filed: 12/11/20 18:08> Medical History (Updated 12/11/20 @ 17:55 by Patrick Cassidy) Borderline diabetes mellitus GERD (gastroesophageal reflux disease) Hx of Clostridium difficile infection ER visit Improved with oral antibx Hyperlipidemia Hypertension Hypothyroidism Impaired renal function Pt reported Vaginal yeast infection Surgical History History of arthroplasty of left knee (08/30/19) History of breast surgery Blocked duct Left breast History of History of colonoscopy History of eye surgery Right eye - detached retina Hx of dilation and curettage Family History Mother TIA (transient ischemic attack) Other Diabetes Heart disease Social History Smoking/Tobacco Use Status: Never Smoking risk assessment performed?: Yes Alcohol Intake: current Alcohol Intake frequency: holidays/special occasions only Drug use: Never Substance use type: does not use Current gender identity: female Nisha/Caodaism: Zoroastrianism Agree to transfusion: No Do you feel safe at home: Yes Do you feel safe in your relationship?: Yes Exam <ATIF Mensah Last Filed: 12/11/20 18:08> Const Orientation: oriented x3 Chest Chest: normal inspection of the chest Resp Effort & Inspection: normal respiratory effort Auscultation: clear to auscultation bilaterally Cardio Rate: regular rate Rhythm: regular rhythm GI Inspection: normal to inspection Auscultation: normal bowel sounds Skin General skin exam: no rashes or lesions noted Neuro General: patient alert and patient oriented x3 Extrem Right lower extremity: normal capillary refill Other: 1+ edema to bilateral lower extremities Course <ATIF Mensah Last Filed: 12/11/20 18:08> Vital Signs Vital signs: Vital Signs Temperature 36.6 C 12/10/20 14:43 Pulse 75 12/10/20 14:43 Respiratory Rate 16 12/10/20 14:43 Blood Pressure 177/90 H 12/10/20 14:43 Pulse Oximetry 97 12/10/20 14:43 Temperature 36.6 C 12/10/20 14:43 Temperature Source Skin 12/10/20 14:43 Pulse 75 12/10/20 14:43 Respiratory Rate 16 12/10/20 15:12 Respiratory Effort 12/10/20 15:12 Respiratory Depth Normal 12/10/20 15:12 Respiratory Pattern Normal 12/10/20 15:12 Blood Pressure 177/90 H 12/10/20 14:43 Blood Pressure Position Sitting 12/10/20 14:43 Pulse Oximetry 97 12/10/20 14:43 Oxygen Delivery Method Room Air 12/10/20 14:43 Oxygen Flow Rate 0 12/10/20 14:43 Pain Level 0 12/10/20 14:43 Lab/Test Results Lab/Test Results: Laboratory Tests Range/Units 12/10/20 15:00 WBC (4.4-10.8) 10^3/uL 7.64 RBC (3.93-5.22) 10^6/uL 5.28 H Hgb (11.2-15.7) g/dL 14.3 Hct (36.0-46.0) % 43.6 MCV (80-95) fL 82.6 MCH (27.0-33.0) pg 27.1 MCHC (32.0-36.0) % 32.8 RDW (11.7-14.6) % 13.7 Plt Count (130-400) 10^3/uL 236 MPV (8.0-11.0) fL 10.2 Immature Gran % 0.3 Neutrophils % 59.2 Lymphocytes % 29.2 Monocytes % 7.3 Eosinophils % 3.3 Basophils % 0.7 Nucleated RBC % % 0 Absolute Neutrophils (1.2-6.7) 10^3/uL 4.53 Absolute Lymphocytes (1.2-3.4) 10^3/uL 2.23 Absolute Monocytes (0.1-0.8) 10^3/uL 0.56 Absolute Eosinophils (0.0-0.7) 10^3/uL 0.25 Absolute Basophils (0.0-0.2) 10^3/uL 0.05 <Cheikh John MD - Last Filed: 12/10/20 23:36> Critical Care Time Critical Care Time: Yes Total Critical Care Time: 40 Attestation: I spent greater than 40 minutes addressing this patient's immediate life threats. Please see MDM section of note. This time was spent engaged in work directly related to the patient's care, exclusive of separate procedures, and failure to initiate these interventions would have likely resulted in clinically significant or life threatening deterioration in the patient's condition. Sign Out <ATIF Mensah - Last Filed: 12/11/20 18:08> Sign Out Data: Sign Out Comment: pending placement Last updated by Denice Andrade PA at 12/10/20 16:09
[2020-12-10 15:39] LABS: ALT 24 U/L (14-59); AST 16 U/L (15-37); Albumin 3.8 g/dL (3.4-5.0); Alkaline Phosphatase 91 U/L (46-116); Anion Gap 8.8 mmol/L (3-11); BUN 22 mg/dL (7-18); Bilirubin, Total 0.5 mg/dL (0.2-1.0); CO2 29.2 mmol/L (21.0-32.0); CREATININE 0.8 mg/dL (0.55-1.02); Calcium 9.2 mg/dL (8.5-10.1); Chloride 107 mmol/L (98-107); Glucose 122 mg/dL (74-106); Magnesium 1.8 mg/dL (1.8-2.4); NT-proBNP 270 pg/mL (<300); Potassium 3.7 mmol/L (3.5-5.1); Sodium 145 mmol/L (136-145); Total Protein 7.6 g/dL (6.4-8.2)
[2020-12-10 15:40] LABS: TSH 2.61 uIU/mL (0.36-3.74)
[2020-12-10] MEDS: Aspirin 81 MG CHEW 324 MG CH (15:40)
[2020-12-10 15:41] LABS: Troponin I < 0.05 ng/mL (<0.06)
--- NOTE | 2020-12-10 17:15 | DI.CT_ITS ---
EXAM: CT CHEST PE CTA CLINICAL HISTORY: chest pain left, elevated ddimer. TECHNIQUE: Imaging Protocol: CT angiography of the chest was performed using pulmonary embolus pernell col. Multi planar reconstructions were performed. CONTRAST MATERIAL: Intravenous: Omnipaque 350 Contrast volume: 100 cc COMPARISON: No exams were available for comparison FINDINGS: CHEST: PULMONARY ARTERIES: There are no intraluminal filling defects to suggest acute pulmonary emboli. LUNGS: There are no infiltrates nor evidence of pulmonary infarction.. There are no pleural effusions . MEDIASTINUM: There is no hilar nor mediastinal adenopathy. Visualized thyroid unremarkable. CARDIAC: Heart size is upper normal. There is no pericardial effusion.Caliber of the thoracic aorta is within normal limits. There is no significant shift of the interventricular septum. PARTIALLY VISUALIZED UPPERMOST ABDOMEN: A normal right kidney is not seen. Instead there is a large lobulated mass which is either tumor replacing the kidney or in other type of mass. This is not full y imaged on this study and will require close investigation as this may represent a large neoplasm. The partially visualized opposite-left kidney appears unremarkable as do the adrenal glands. In addition, there is a cystic lesion in the pancreatic head at junction with the uncinate process wh ich measures 14 x 13 millimeters. This requires further investigation. Probably represent cystic ne oplasm. MRI/MRCP recommended OSSEOUS: No significant osseous lesions.. IMPRESSION: 1. No evidence of acute pulmonary emboli. No evidence of pulmonary infarction.No pleural effusions. 2. Large mass in the right renal fossa which requires investigation. Possibly neoplastic. 3. Also cystic mass in the pancreatic head which may represent cystic neoplasm. This also requires f urther investigation. Abdominal MRI without and with IV contrast as well as MRCP recommended. RADIATION DOSE DELIVERED: 520.36mGy.cm Total DLP DATA REPOSITORY: All CT scans at this facility are submitted to the National Radiology Data Registry (NRDR) Dose Index Registry (DIR) with the [employer] ([employer]). RADIATION OPTIMIZATION: All CT scans at this facility use at least one of these dose optimization te chniques: automated exposure control; mA and/or kV adjustment per patient size (includes targeted exa ms where dose is matched to clinical indication); or iterative reconstruction.
[2020-12-10 17:24] LABS: D-Dimer 988 ng/mlFEU (<500)
[2020-12-10] MEDS: Normal Saline Flush 10 ML SYR IVP (17:56)
[2020-12-10] MEDS: Normal Saline - Diluent 50 ML VIAL IV (17:56)
[2020-12-10] MEDS: Clopidogrel 300 MG TAB PO (18:01)
--- NOTE | 2020-12-10 18:45 | DI.VRAD_ITS ---
PROCEDURE INFORMATION: Exam: CTA Chest With Contrast Exam date and time: 12/10/2020 5:26 PM Age: 70 years old Clinical indication: Other: Chest pain left, elevated ddimer TECHNIQUE: Imaging protocol: Computed tomographic angiography of the chest with contrast. 3D rendering (Not supervised by radiologist): MIP and/or 3D reconstructed images were created by the technologist. Radiation optimization: All CT scans at this facility use at least one of these dose optimization techniques: automated exposure control; mA and/or kV adjustment per patient size (includes targeted exams where dose is matched to clinical indication); or iterative reconstruction. Contrast material: VISIPAQUE 320; Contrast volume: 100 ml; Contrast route: INTRAVENOUS (IV); COMPARISON: No relevant prior studies available. FINDINGS: Pulmonary arteries: The pulmonary arteries opacify normally with contrast without pulmonary embolism. Aorta: The thoracic aorta is normal in caliber without aneurysm or dissection. Great vessels off aortic arch: The great vessels opacify normally with contrast. Lungs: Mild bronchiectasis. No endobronchial lesion. Mild bronchial cuffing. No focal pulmonary infiltrate or pulmonary edema. Pleural spaces: Unremarkable. No pneumothorax. No pleural effusion. Heart: The heart is upper limits of normal in size to mildly enlarged. No evidence for right heart strain. RV/LV ratio 0.8. Mediastinal space: The esophagus is mildly dilated, suggesting esophageal dysmotility. Mild circumferential wall thickening throughout the esophagus. Tiny hiatal hernia. Lymph nodes: Unremarkable. No enlarged lymph nodes. Liver: The the liver is normal in size and is slightly fatty infiltrated. Gallbladder and bile ducts: The gallbladder is normal appearance. No bile duct dilatation. Pancreas: The pancreas is mildly atrophic. No pancreatic ductal dilatation. A 1.5 x 1.5 cm cystic lesion is seen within the pancreatic head. The remaining pancreas is normal in appearance. Adrenal glands: The bilateral adrenal glands are normal appearance. Kidneys and ureters: The imaged portions of the left kidney are normal in appearance. The a large cystic multiloculated mass is seen within the expected location of the right renal fossa, only partially imaged and evaluated on this study Stomach and bowel: Mild wall thickening within the gastric folds. Bones/joints: Mild degenerative changes throughout the thoracic spine. No acute compression fracture. Soft tissues: Unremarkable. IMPRESSION: 1. No evidence for a pulmonary embolism. No thoracic aortic aneurysm or dissection. No evidence for right heart strain. 2. Gastroesophagitis. Tiny hiatal hernia. 3. Large, partially imaged, multi-cystic mass within/replacing the right kidney, which could represent multiple cysts. However, a solid neoplasm cannot be excluded. This warrants further evaluation with a renal mass protocol CT or MRI. 4. 1.5 x 1.5 cm cystic lesion within the pancreatic head, which could represent sequela prior pancreatitis. However, a pancreatic neoplasm could also have this appearance. This warrants further evaluation with an MRI/MRCP study. Dictated and Authenticated by: Nannette Mullen MD. Ordering:JOHN Salamanca MD
[2020-12-10] MEDS: Acetaminophen 325 MG TAB 650 MG PO (20:35)
[2020-12-10 20:37] LABS: Source Nasal/Nares
[2020-12-10 20:49] LABS: Troponin I < 0.05 ng/mL (<0.06)
[2020-12-10 22:06] LABS: PTT Activated 110.1 sec (21.0-27.5)
[2020-12-10 22:48] LABS: COVID-19 PCR Negative (Negative)
--- NOTE | 2020-12-10 23:07 | W.PM.HP.N ---
Date of service: 12/10/20 Time of Service: 23:07 Assessment and Plan Assessment and plan (1) Chest discomfort: Status: Acute Assessment and plan: Atypical for angina, but with concerning features in a patient wiht clear risk factors. New LBBB not likely ischemic, but not reassuring. Case reviewed with [facility], recommended short term anticoagulation and rule out with serial tropnoins. I think we can stop heparin after troponins negative. No PE on CT. (2) Hyperlipidemia: Status: Acute Assessment and plan: will start back on high intensitity statin again to see if tolerates. If not, consider alternatives such as PSK9. (3) Hypertension: Status: Chronic Assessment and plan: BP a little high, but in pain. Monitor on her outpatient regimen. (4) Hypothyroidism: Status: Chronic Assessment and plan: TSH okay off meds for several months. (5) GERD (gastroesophageal reflux disease): Status: Chronic Assessment and plan: Continue PPI. (6) DVT prophylaxis: Status: Acute Assessment and plan: LMWH (7) Discharge planning issues: Status: Acute Assessment and plan: currently stable medical floor. She is full code. History of Present Illness History of Present Illness Chief Complaint: Palpitations, chest discomfort Narrative: 70-year-old female with history of hypertension and hyperlipidemia presented with sudden onset palpitations associated with chest and arm pressure started last night. Initial episode woke her up from her sleep about 9:30 PM last night after she had just gone to bed. She felt like her heart was coming out of her chest and she felt quite lightheaded and like her body was shaking. She tried to breathe deeply, did not feel especially short of breath. She did feel heaviness that extended to her left arm. She did not feel nauseous or diaphoretic. After about a half an hour per discomfort subsided and she was able to sleep. Is also noted over the past month blood pressures have been running high and her days more swollen than usual. On the day of admission she went to [facility] for I happen to be working and evaluated her. EKG showed a new left bundle branch block, which is not present on the previous EKG on record from 2010. I recommend she come to be evaluated emergency room. She has been taking her medication as prescribed. She is now wanting to take cholesterol medication as she has body aching with statin medication in the past. Review of Systems Constitutional Constitutional: Reports fatigue, Denies fever(s), Reports headache(s), Reports lethargy and Denies weakness Eyes Eyes: Denies change in vision and Denies irritation ENT Ears, Nose, Mouth, and Throat: Denies dizziness, Reports headache(s), Denies mouth lesions and Denies nasal congestion Cardiovascular Cardiovascular: Reports leg edema, Denies palpitations and Denies orthopnea Respiratory Respiratory: Denies cough, Denies excessive phlegm production and Denies wheezing Gastrointestinal Gastrointestinal: Denies abdominal pain, Denies heartburn and Denies vomiting Genitourinary Genitourinary: Denies hematuria, Denies dysuria and Denies urinary incontinence Integumentary/Breasts Skin/Breast: Denies rash and Denies skin ulcer Neurologic Neurologic: Denies dizziness, Reports headache(s) and Denies weakness Psychiatric Psychiatric: Denies mood swings and Denies panic attacks Endocrine Endocrine: Reports fatigue and Denies palpitations Hematologic/Lymphatic Hematologic/Lymphatic: Denies easy bleeding Allergic/Immunologic Allergic/Immunologic: Denies wheezing PFSH Medical History (Updated 12/10/20 @ 23:36 by Cheikh John MD) Borderline diabetes mellitus GERD (gastroesophageal reflux disease) Hx of Clostridium difficile infection ER visit Improved with oral antibx Hyperlipidemia Hypertension Hypothyroidism Impaired renal function Pt reported Vaginal yeast infection Surgical History History of arthroplasty of left knee (08/30/19) History of breast surgery Blocked duct Left breast History of History of colonoscopy History of eye surgery Right eye - detached retina Hx of dilation and curettage Family History Mother TIA (transient ischemic attack) Other Diabetes Heart disease Social History Smoking/Tobacco Use Status: Never Smoking risk assessment performed?: Yes Alcohol Intake: current Alcohol Intake frequency: holidays/special occasions only Drug use: Never Substance use type: does not use Current gender identity: female Nisha/Confucianism: Baptism Agree to transfusion: No Do you feel safe at home: Yes Do you feel safe in your relationship?: Yes Meds Allergies and Home Medications Allergies Allergy/AdvReac Type Severity Reaction Status Date / Time erythromycin base Allergy Severe tongue Verified 12/10/20 14:53 swelling/difficultly breathing Penicillins Allergy Unknown Verified 12/10/20 14:53 adhesive tape Allergy rash/bloody Verified 12/10/20 14:53 skin latex AdvReac itching/break Verified 12/10/20 14:53 out rash Home Medications Medication Instructions Recorded Confirmed Type amlodipine 10 mg tablet 10 mg PO DAILY 01/18/19 12/10/20 History levothyroxine 25 mcg capsule 25 mcg PO DAILY 01/18/19 12/18/19 History metoprolol succinate 200 mg 100 mg PO DAILY 01/18/19 12/10/20 History capsule sprinkle, ext. release 24 hr hydrochlorothiazide 25 mg PO DAILY 04/20/19 12/18/19 History acetaminophen 1,000 mg PO Q8H PRN #90 tab 10/25/19 12/10/20 Rx aspirin [Adult Low Dose Aspirin] 81 mg PO BID #0 tab 10/25/19 12/18/19 Rx gabapentin 300 mg PO QHS #7 cap 10/25/19 12/18/19 Rx naproxen 500 mg PO BID PRN #60 tab 10/25/19 12/18/19 Rx pantoprazole 40 mg PO DAILY #30 tab 10/25/19 12/18/19 Rx oxycodone 5 mg tablet 5 mg PO BID #10 tab MDD 10mg 11/10/19 12/18/19 Rx aspirin 81 mg PO DAILY 12/10/20 12/10/20 History Exam Narrative Exam Narrative: GEN: Alert and oriented, pleasent and cooperative, gives linear history. No acute distress at rest. HEENT: Head atraumatic. Conjunctiva clear, no icterus. PEERL, EOMI. no rhinorrhea. MMM, OP benign. Neck is supple with no masses or lymphadenopathy, trachea midline LUNGS: CTAB with normal effort CV: RRR with no murmurs, gallops, or rubs. ABD: +BS, soft, NT/ND EXT: no cyanosis, clubbing, or edema MSK: No joint redness or swelling NEURO: CN 2-12 grossly intact. Normal movement of 4 extremities. Normal speech and coordination. no tremor SKIN: No rashs or open wounds, did get red on dorsal left hand after IV. PSYCH: normal mood, mildly anxious affect Results Imaging CT scan - chest: report reviewed EKG: image reviewed Imaging Studies: CT chest: 1. No evidence for a pulmonary embolism. No thoracic aortic aneurysm or dissection. No evidence for right heart strain. 2. Gastroesophagitis. Tiny hiatal hernia. 3. Large, partially imaged, multi-cystic mass within/replacing the right kidney, which could represent multiple cysts. However, a solid neoplasm cannot be excluded. This warrants further evaluation with a renal mass protocol CT or MRI. 4. 1.5 x 1.5 cm cystic lesion within the pancreatic head, which could represent sequela prior pancreatitis. However, a pancreatic neoplasm could also have this appearance. This warrants further evaluation with an MRI/MRCP study. Labs Result diagrams: 12/10/20 15:00 12/10/20 15:00 Labs: Laboratory Results - last 24 hr 12/10/20 12/10/20 12/10/20 15:00 15:00 15:00 WBC 7.64 RBC 5.28 H Hgb 14.3 Hct 43.6 MCV 82.6 MCH 27.1 MCHC 32.8 RDW 13.7 Plt Count 236 MPV 10.2 Immature Gran % 0.3 Neutrophils % 59.2 Lymphocytes % 29.2 Monocytes % 7.3 Eosinophils % 3.3 Basophils % 0.7 Nucleated RBC % 0 Absolute Neutrophils 4.53 Absolute Lymphocytes 2.23 Absolute Monocytes 0.56 Absolute Eosinophils 0.25 Absolute Basophils 0.05 APTT D-Dimer Sodium 145 Potassium 3.7 Chloride 107 Carbon Dioxide 29.2 Anion Gap 8.8 BUN 22 H Creatinine 0.8 Estimated GFR/1.73 m2 >= 60.00 Glucose 122 H Calcium 9.2 Magnesium 1.8 Total Bilirubin 0.5 AST 16 ALT 24 Alkaline Phosphatase 91 Troponin I < 0.05 NT-Pro-B Natriuret Pep 270 Total Protein 7.6 Albumin 3.8 TSH 2.61 COVID-19 Source SARS-CoV-2 (PCR) 12/10/20 12/10/20 12/10/20 15:00 20:17 20:35 WBC RBC Hgb Hct MCV MCH MCHC RDW Plt Count MPV Immature Gran % Neutrophils % Lymphocytes % Monocytes % Eosinophils % Basophils % Nucleated RBC % Absolute Neutrophils Absolute Lymphocytes Absolute Monocytes Absolute Eosinophils Absolute Basophils APTT 110.1 H* D-Dimer 988 H Sodium Potassium Chloride Carbon Dioxide Anion Gap BUN Creatinine Estimated GFR/1.73 m2 Glucose Calcium Magnesium Total Bilirubin AST ALT Alkaline Phosphatase Troponin I < 0.05 NT-Pro-B Natriuret Pep Total Protein Albumin TSH COVID-19 Source SARS-CoV-2 (PCR) 12/10/20 20:35 WBC RBC Hgb Hct MCV MCH MCHC RDW Plt Count MPV Immature Gran % Neutrophils % Lymphocytes % Monocytes % Eosinophils % Basophils % Nucleated RBC % Absolute Neutrophils Absolute Lymphocytes Absolute Monocytes Absolute Eosinophils Absolute Basophils APTT D-Dimer Sodium Potassium Chloride Carbon Dioxide Anion Gap BUN Creatinine Estimated GFR/1.73 m2 Glucose Calcium Magnesium Total Bilirubin AST ALT Alkaline Phosphatase Troponin I NT-Pro-B Natriuret Pep Total Protein Albumin TSH COVID-19 Source Nasal/nares SARS-CoV-2 (PCR) Negative Last Vital Signs Temp 37.1 C 12/10/20 16:35 Pulse 63 12/10/20 20:02 Resp 11 L 12/10/20 20:02 BP 145/57 H 12/10/20 20:02 Pulse Ox 95 12/10/20 20:02 COVID-19 Screening Have you, or household traveled for leisure in last 14 days?: No Had IN PERSON contact w/suspected or confirmed C-19 person: No
[2020-12-10] MEDS: Gabapentin 300 MG CAP PO (23:45)
[2020-12-11] VITALS (51 sets, daily range): BP systolic 115–159; BP diastolic 49–83; PULSE 51–112; RESP 10–21; TEMP 36.8; O2SAT 92–98
[2020-12-11 00:19] LABS: PTT Activated 74.4 sec (21.0-27.5)
[2020-12-11 06:18] LABS: Troponin I < 0.05 ng/mL (<0.06)
[2020-12-11] MEDS: Pantoprazole 40 MG TABCR PO (08:40)
[2020-12-11] MEDS: Clopidogrel 75 MG TAB PO (08:40)
[2020-12-11] MEDS: hydroCHLOROthiazide 25 MG TAB PO (08:40)
[2020-12-11] MEDS: amLODIPine 10 MG TAB PO (08:40)
[2020-12-11] MEDS: Metoprolol CR 100 MG TABCR PO (08:40)
[2020-12-11] MEDS: Aspirin E.C. 81 MG TABEC PO (08:40)
--- NOTE | 2020-12-11 10:30 | PDOC.CMIN ---
- If Service Date Differs Date of service: 12/11/20 Time of Service: 10:30 Care Management Initial Assess REASON FOR HOSPITALIZATION:: Unstable Angina PAST MEDICAL HISTORY/PAST SURGICAL HISTORY:: Medical History. Borderline diabetes mellitus. GERD (gastroesophageal reflux disease). Hx of Clostridium difficile infection. ER visit. Improved with oral antibx. Hyperlipidemia. Hypertension. Hypothyroidism. Impaired renal function. Pt reported. Vaginal yeast infection. Surgical History. History of arthroplasty of left knee (08/30/19). History of breast surgery. Blocked duct. Left breast. History of . History of colonoscopy. History of eye surgery. Right eye - detached retina. Hx of dilation and curettage PREVIOUS FUNCTIONAL STATUS/SOCIAL/FAMILY SUPPORTS:: Shanta resides in [place] with her , Catalino. Both her daughter and son live in [place]. 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 Her first about 5 years ago. Shanta is independent at baseline in the community. CURRENT FUNCTIONAL STATUS:: Shanta was sitting up in her bed eating her lunch when CM met with her. She reported that she is feeling good with no pain. She is very pleased with the care she is receiving at [facility]. Per report, she will remain on Heparin for 48 hours, and will likely have a stress test prior to discharge. CM will continue to follow. ADVANCE DIRECTIVES:: On file at [facility]. Catalino, as agent, daughter, Juhi as alternate. NO BLOOD TRANSFUSIONS. Has patient been provided with info about the portal/API?: Yes Did the patient sign up for the portal?: No CODE STATUS:: Full Code INSURANCE COVERAGE / FINANCIAL ISSUES:: [facility] CURRENT HOME/COMMUNITY SERVICES/EQUIPMENT:: [facility] PRIMARY CARE PHYSICIAN:: RUSSELL Gilliland POTENTIAL DISCHARGE NEEDS:: Follow up appointments PATIENT/FAMILY EDUCATION NEEDS:: Review discharge instructions, discuss Ask Me Three. ANTICIPATED BARRIERS TO DISCHARGE:: None identified TRANSPORTATION:: Via private vehicle with her , Catalino. PLAN:: Shanta will return home once medically cleared. Her will drive her home via private vehicle. She will follow up with her PCP and discharge plan of care. CM will continue to follow.
[2020-12-11 12:02] LABS: PTT Activated 36.5 sec (21.0-27.5)
--- NOTE | 2020-12-11 14:43 | W.PM.PROGNOT ---
Date of Service Date of service: 12/11/20 Time of Service: 14:43 Assessment and Plan Assessment and plan (1) Chest discomfort: Status: Acute Assessment and plan: Patient states that she did not have any chest pain or pressure but felt palpitations. Troponins were negative therefore effectively rule out an acute VT. Echocardiogram shows no wall motion abnormalities. At this point I think she can be discharged home with follow-up stress MPI. I think she needs a Holter monitor as well as adjustment of her beta-joo. She should follow-up with cardiology upon discharge. (2) PSVT (paroxysmal supraventricular tachycardia): Status: Acute Assessment and plan: Continue Toprol-XL 100 mg in the morning we will ask her to take 25 mg in the evening and get a Holter monitor. (3) Left bundle branch block (LBBB): Status: Acute (4) Right kidney mass: Status: Suspected Assessment and plan: patient states that she has hx of atrophied right kidney. She indicated to me that she was unaware of the findings on last night's CT findings. I am advising her to get outpatient MRI of her abdomen which can look at both the cystic mass of her right kidney and her pancreas. (5) Pancreatic mass: Status: Suspected Assessment and plan: as above. CT findings discussed w/ the patient and her . Subjective Subjective Interval history since last seen: 70-year-old female with history of hypertension hyperlipidemia as well as a history of palpitations. She is formally a patient of Dr. Leos from [facility] who formally practice here at [facility]. She is also seen Dr. Elizabeth carranza at [facility]. Patient states she previously been on Toprol XL 400 mg a day and to her PCP weaned her down to her current dose of 100 mg daily. Patient states that she is very active she has been in rehabilitation through physical therapy after knee replacements. Since that time she has been walking on a treadmill and been very active with no exertional chest pain or pressure or dyspnea. She had a severe episode of palpitations which she felt her heart was pounding in her chest not associated with any syncope. She was seen in outpatient clinic by Dr. Solitario in which she had a new left bundle branch block on EKG and was referred to the emergency department. Nursing staff this morning reported that she has been in sinus rhythm with a very brief run of PSVT in the 120s. Since she got her morning dose of Toprol-XL 100 mg they have not seen any more supraventricular ectopy. Her troponins are negative and her echocardiogram came back showing normal LV and RV function with no significant valvular pathology. Patient was placed on a heparin drip last night and put on dual antiplatelet therapy for treatment of presumed unstable angina. This point the patient is wishing to return home. She has not had a stress test for about 5 [address] Johnson did one. I to order that I am agreeable to discharging her home once we discontinue the heparin drip and she is ambulated around the hospital a few times over the next couple hours. I think she may need an increase in her Toprol-XL and she should have an outpatient 48-hour Holter or preferably a 14-day event recorder. I also think she needs an outpatient stress MPI to rule out occult ischemic disease. Exam Narrative Exam Narrative: Obese female who is pleasant alert and oriented person place time circumstance. Her is in the room with her and answered questions for both of them. Lungs are clear to auscultation Heart regular rate and rhythm with no appreciable murmur rub. Neck is supple no thyromegaly Extremities without peripheral edema Objective Last Vital Signs Temp 36.8 C 12/11/20 09:10 Pulse 56 L 12/11/20 09:10 Resp 13 12/11/20 09:10 BP 132/68 12/11/20 09:10 Pulse Ox 96 12/11/20 09:10 Laboratory Results - last 24 hr 12/10/20 12/10/20 12/10/20 15:00 15:00 15:00 WBC 7.64 RBC 5.28 H Hgb 14.3 Hct 43.6 MCV 82.6 MCH 27.1 MCHC 32.8 RDW 13.7 Plt Count 236 MPV 10.2 Immature Gran % 0.3 Neutrophils % 59.2 Lymphocytes % 29.2 Monocytes % 7.3 Eosinophils % 3.3 Basophils % 0.7 Nucleated RBC % 0 Absolute Neutrophils 4.53 Absolute Lymphocytes 2.23 Absolute Monocytes 0.56 Absolute Eosinophils 0.25 Absolute Basophils 0.05 APTT D-Dimer Sodium 145 Potassium 3.7 Chloride 107 Carbon Dioxide 29.2 Anion Gap 8.8 BUN 22 H Creatinine 0.8 Estimated GFR/1.73 m2 >= 60.00 Glucose 122 H Calcium 9.2 Magnesium 1.8 Total Bilirubin 0.5 AST 16 ALT 24 Alkaline Phosphatase 91 Troponin I < 0.05 NT-Pro-B Natriuret Pep 270 Total Protein 7.6 Albumin 3.8 TSH 2.61 COVID-19 Source SARS-CoV-2 (PCR) 12/10/20 12/10/20 12/10/20 15:00 20:17 20:35 WBC RBC Hgb Hct MCV MCH MCHC RDW Plt Count MPV Immature Gran % Neutrophils % Lymphocytes % Monocytes % Eosinophils % Basophils % Nucleated RBC % Absolute Neutrophils Absolute Lymphocytes Absolute Monocytes Absolute Eosinophils Absolute Basophils APTT 110.1 H* D-Dimer 988 H Sodium Potassium Chloride Carbon Dioxide Anion Gap BUN Creatinine Estimated GFR/1.73 m2 Glucose Calcium Magnesium Total Bilirubin AST ALT Alkaline Phosphatase Troponin I < 0.05 NT-Pro-B Natriuret Pep Total Protein Albumin [facility] COVID- Source SARS-CoV-2 (PCR) 12/10/20 12/10/20 12/11/20 20:35 23:40 00:40 WBC RBC Hgb Hct MCV MCH MCHC RDW Plt Count MPV Immature Gran % Neutrophils % Lymphocytes % Monocytes % Eosinophils % Basophils % Nucleated RBC % Absolute Neutrophils Absolute Lymphocytes Absolute Monocytes Absolute Eosinophils Absolute Basophils APTT 74.4 H D 36.5 H D D-Dimer Sodium Potassium Chloride Carbon Dioxide Anion Gap BUN Creatinine Estimated GFR/1.73 m2 Glucose Calcium Magnesium Total Bilirubin AST ALT Alkaline Phosphatase Troponin I NT-Pro-B Natriuret Pep Total Protein Albumin [facility] COVID-19 Source Nasal/nares SARS-CoV-2 (PCR) Negative 12/11/20 12/11/20 05:35 05:35 WBC RBC Hgb Hct MCV MCH MCHC RDW Plt Count MPV Immature Gran % Neutrophils % Lymphocytes % Monocytes % Eosinophils % Basophils % Nucleated RBC % Absolute Neutrophils Absolute Lymphocytes Absolute Monocytes Absolute Eosinophils Absolute Basophils APTT 47.0 H D D-Dimer Sodium Potassium Chloride Carbon Dioxide Anion Gap BUN Creatinine Estimated GFR/1.73 m2 Glucose Calcium Magnesium Total Bilirubin AST ALT Alkaline Phosphatase Troponin I < 0.05 NT-Pro-B Natriuret Pep Total Protein Albumin [facility] COVID-19 Source SARS-CoV-2 (PCR)
--- NOTE | 2020-12-11 17:55 | DSE_ITS ---
Date of service: 12/11/20 Time of Service: 17:55 DS: Diagnosis Discharge Diagnosis (1) Chest discomfort: Status: Resolved Asessment and Plan: Outpatient Lexiscan stress MPI has been ordered and should be set up within the next week. The patient does not hear from diagnostic imaging department and she should go to her PCP office to have this coordinated. Patient should remain on increased dose of Toprol as noted below and continue her aspirin. (2) PSVT (paroxysmal supraventricular tachycardia): Status: Resolved Asessment and Plan: Patient will increase her Toprol XL to 150 mg daily. It is recommended she get a follow-up 14-day cardiac event recorder. Order has been written for such study but needs to be prior authorized through her PCP office (3) Left bundle branch block (LBBB): Status: Acute (4) Right kidney mass: Status: Suspected Asessment and Plan: Outpatient CT scan of the abdomen with IV and oral contrast has been ordered. Diagnostic imaging department should contact the patient to set this up. The patient does not hear from diagnostic imaging department within a week then she should go to her PCP office to have this set up. (5) Pancreatic mass: Status: Suspected Discharge Plan Disposition Patient Disposition: HOME Condition: Good Discharge Details Reason For Visit: UNSTABLE ANGINA Admit Date/Time: 12/10/20 21:29 Admit Provider: Frandy Solitario Attending Provider: Frandy Solitario Primary Care Provider: Brandon Bowden Hospital Course Hospital Course: 70-year-old female with history of hypertension, hyperlipidemia presented with sudden onset of palpitations associated with chest pain and left arm pressure. This occurred about 9:30 PM on the night prior to admission. Pain improved and she went back to sleep. On the day of admission she was seen in [facility] in [facility] where Dr. Frandy Solitario evaluated her and did an EKG and found a new left bundle branch block that had not been present on prior EKG from 2010. He recommended she present to the emergency department. In the emergency department she underwent a repeat EKG routine lab work and a CTA of her chest. CTA showed no evidence of acute pulmonary emboli and she had no evidence of pulmonary infarction or pulmonary mass or infiltrates. However incidental finding involving her upper abdomen showed a large mass in the right renal fossa for which further work-up including either an MRI or dedicated CT of the abdomen with contrast was recommended. Also found was a cystic mass in the pancreatic head for which neoplasm could not be excluded. EKG demonstrated sinus rhythm with a left bundle branch block and ST elevation secondary to intraventricular conduction delay. Initial troponin was less than 0.05. ER personnel discussed the case with [facility] gate operator women's apparel salesperson. Recommendation was for admission on observation and initiation of dual antiplatelet therapy along with systemic heparinization and trend her serial troponins. Patient had no further symptoms of chest pain or pressure palpitations. In fact when I discussed the case with her she told me she never had chest pain or pressure just palpitations and a funny feeling in her left arm. On the morning of discharge she had a brief run of nonsustained PSVT at a rate in the 140s lasting for about 12 seconds. Patient was taken off the heparin drip and ambulated multiple times around the nursing unit and out to the medical/surgical floor with no exertional dyspnea or chest pain or pressure. An echocardiogram was performed and showed normal left ventricular size and function with an ejection fraction of 60%. Right ventricular size and function were within normal limits. She had normal pulmonary pressures and normal right and left atrial size. She had no significant valvular abnormalities. As the patient was having no further symptoms and requested to return home she was discharged home in stable condition. I reviewed the abnormal CT scan with her and her and recommend a follow-up dedicated abdominal CT with contrast and told her she may require an MRI scan as well. I also recommend increasing her Toprol-XL to 150 mg daily. Currently she takes a 200 mg Toprol-XL and splits at half. I have changed her prescription to Toprol-XL 100 mg 1/2 tablets daily. I also decreased her hydrochlorothiazide to half of a 25 mg tablet in order to allow enough blood pressure to accommodate the increased Toprol-XL. Furthermore she was a little bit prerenal with a mildly elevated BUN but a normal creatinine on admission. As she has no congestive heart failure I thought we could decrease her diuretic slightly. It is recommended she have an outpatient 14-day Holter monitor to assess stability of her heart rhythm and see if she has any further PSVT. Also recommend she have an outpatient stress MPI scan since it has been about 5 or 6 years since her last stress test. She should remain on aspirin 81 mg daily. Home Meds and New Rx's Prescriptions: New metoprolol succinate [Toprol XL] 100 mg tablet extended release 24 hr 150 mg PO DAILY Qty: 45 RF: 0 Continued amlodipine 10 mg tablet 10 mg PO DAILY RF: 0 levothyroxine 25 mcg capsule 25 mcg PO DAILY RF: 0 oxycodone 5 mg tablet 5 mg PO BID MDD 10mg Qty: 10 RF: 0 acetaminophen 500 mg tablet 1,000 mg PO Q8H PRN (Reason: pain) Qty: 90 RF: 3 gabapentin 300 mg capsule 300 mg PO QHS Qty: 7 RF: 0 aspirin [Adult Low Dose Aspirin] 81 mg tablet,delayed release (DR/EC) 81 mg PO BID Qty: 0 RF: 0 pantoprazole 40 mg tablet,delayed release (DR/EC) 40 mg PO DAILY Qty: 30 RF: 0 naproxen 500 mg tablet 500 mg PO BID PRN (Reason: pain) Qty: 60 RF: 3 aspirin 81 mg tablet,delayed release (DR/EC) 81 mg PO DAILY RF: 0 Changed hydrochlorothiazide 25 mg Tablet 12.5 mg PO DAILY Qty: 0 RF: 0 Discontinued metoprolol succinate 200 mg cap,sprinkle,ER 24hr dose pack 100 mg PO DAILY RF: 0 Discharge Instructions Instructions: Supraventricular Tachycardia (DC), Chest Pain (DC) Activity:: Activity as Tolerated Equipment/Supplies:: No Equipment Needed Diet:: Normal Diet Discharge Orders Discharge Orders: Discharge Order (Routine); Ordered 12/11/20 Ordered By: Patrick Cassidy Other Ambulatory Orders: CT abdomen & pelvis w (Routine) Timeframe: 1 Week Facility: [facility] - Location: DIAGNOSTIC IMAGING DEPT Ordered By: Patrick Cassidy 14 Day Inspector Metal Fabricating (Routine) Timeframe: 1 Week Facility: [facility] - Location: Respiratory Therapy Ordered By: Patrick Cassidy NM MPI rest & stress grp (Routine) Location: None Selected Ordered By: Patrick Cassidy DS: Summary Time Spent with Patient providing and/or coordinating discharge services: Greater than 30 minutes Specific discharge activities: Ordering prescriptions and ordering follow-up test and discussing results with patient Status at Discharge Functional status at discharge: independent ambulation Overall status at discharge: patient is back to baseline Mental Status: mental status grossly normal Speech and Movement: speech and movement normal Mood: congruent mood Affect: normal affect Exam Narrative Exam Narrative: Obese female who is pleasant alert and oriented person place time circumstance. Her is in the room with her and answered questions for both of them. Lungs are clear to auscultation Heart regular rate and rhythm with no appreciable murmur rub. Neck is supple no thyromegaly Extremities without peripheral edema Psych Mental Status: mental status grossly normal Speech and Movement: speech and movement normal Mood: congruent mood Affect: normal affect DS: Data Vitals/I&O Vitals and I&O: Vital Signs Temperature 36.8 C 12/11/20 17:31 Temperature Source Temporal Artery Scan 12/11/20 17:31 Pulse 72 12/11/20 17:31 Pulse 84 12/11/20 15:30 Respiratory Rate 15 12/11/20 17:31 Respiratory Effort Non-Labored 12/11/20 17:31 Respiratory Depth Normal 12/11/20 17:31 Respiratory Pattern Normal 12/11/20 17:31 Blood Pressure 158/62 H 12/11/20 17:31 Blood Pressure Mean 94 12/11/20 17:31 Blood Pressure Position Supine 12/11/20 17:31 Pulse Oximetry 96 12/11/20 17:31 Oxygen Delivery Method Room Air 12/11/20 17:31 Oxygen Flow Rate 0 12/11/20 17:31 Pain Level 0 12/11/20 17:33 Intake & Output 12/10/20 12/11/20 12/11/20 23:59 11:59 23:59 Intake Total 56.333 / 56.333 497.0 / 786.70 289.70 / 786.70 Output Total 300 / 300 900 / 900 Balance -243.667 / -243.667 -403.0 / -113.30 289.70 / -113.30 Weight 86.8 kg 86.6 kg Intake: IV 56.333 / 56.333 137.0 / 186.70 49.70 / 186.70 Oral 360 / 600 240 / 600 Output: Urine 300 / 300 900 / 900 Other: Urine Color Yellow Yellow Urine Appearance Clear Clear Urine Odor None None Comment wears poise pads for stress incontinence. has some stress incontinence occasionally Voiding Methods Bedside Commode Bedside Commode Data Completed and Pending Labs on day of discharge: Labs from last 24 hours 12/11/20 12/11/20 12/11/20 05:35 05:35 00:40 APTT 47.0 H D 36.5 H D Troponin I < 0.05 COVID-19 Source SARS-CoV-2 (PCR) 12/10/20 12/10/20 12/10/20 23:40 20:35 20:35 APTT 74.4 H D 110.1 H* Troponin I COVID-19 Source Nasal/nares SARS-CoV-2 (PCR) Negative 12/10/20 20:17 APTT Troponin I < 0.05 COVID-19 Source SARS-CoV-2 (PCR) PFSH Medical History (Updated 12/11/20 @ 17:55 by Patrick Cassidy) Borderline diabetes mellitus GERD (gastroesophageal reflux disease) Hx of Clostridium difficile infection ER visit Improved with oral antibx Hyperlipidemia Hypertension Hypothyroidism Impaired renal function Pt reported Vaginal yeast infection Surgical History History of arthroplasty of left knee (08/30/19) History of breast surgery Blocked duct Left breast History of History of colonoscopy History of eye surgery Right eye - detached retina Hx of dilation and curettage Family History Mother TIA (transient ischemic attack) Other Diabetes Heart disease Social History Smoking/Tobacco Use Status: Never Smoking risk assessment performed?: Yes Alcohol Intake: current Alcohol Intake frequency: holidays/special occasions only Drug use: Never Substance use type: does not use Current gender identity: female Nisha/Baptist: Muslim Agree to transfusion: No Do you feel safe at home: Yes Do you feel safe in your relationship?: Yes
== END 2020-12-11 18:00 | disposition home or self-care (01) | DRG 310 ==
LOC: ER 21:49 → ICU 22:26
PROVIDERS: General Practice; Internal Medicine; Physician Assistant; Admitting Provider Family Medicine; Emergency Provider Student in an Organized Health Care Education/Training Program; PCP Nurse Practitioner Family; Visit Provider Family Medicine
DX: I47.1 Supraventricular tachycardia (principal); I44.7 Left bundle-branch block, unspecified; E78.5 Hyperlipidemia, unspecified; I10 Essential (primary) hypertension; E03.9 Hypothyroidism, unspecified; K21.9 Gastro-esophageal reflux disease without esophagitis; R07.89 Other chest pain; R93.421 Abnormal radiologic findings on diagnostic imaging of right kidney; R93.3 Abnormal findings on diagnostic imaging of other parts of digestive tract
CPT/HCPCS: 36415; 71275; 80053; 87635; 93005; 96365; 96366; 96376; 99222; 99232; 99239; 99291; 83735; 83880; 84443; 84484; 85025; 85379; 85730; 93010; 93306; 99235

== ENCOUNTER 2020-12-13 07:09 | Outpatient (CLI) | payer MEDICARE, SELFPAY ==
--- NOTE | 2020-12-27 14:33 | W.ZIOMONITOR ---
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 Minimum was 46, maximum 96 There were rare ventricular ectopic beats There were moderately frequent atrial premature beats and multiple brief self-limited atrial runs, nonsustained SVT, the longest of which lasted 26 beats There was an approximately 1 minute episode of atrial fibrillation, asymptomatic There was no high-grade AV block, no pauses greater than 3 seconds Patient triggered events corresponded to sinus rhythm without dysrhythmia
== END 2020-12-13 07:10 | disposition home or self-care (01) ==
LOC: RT 07:11
PROVIDERS: PCP Nurse Practitioner Family; Visit Provider Internal Medicine
DX: I47.1 Supraventricular tachycardia (principal)
CPT/HCPCS: 93246

== ENCOUNTER 2020-12-26 01:39 | Outpatient (CLI) | payer MEDICARE, SELFPAY ==
--- NOTE | 2020-12-26 06:45 | DI.CT_ITS ---
Exam(s) CT ABDOMEN PELVIS W EXAM: CT ABDOMEN PELVIS W CLINICAL HISTORY: cystic masses, right kidney and pancreas,N28.89,K86.89 TECHNIQUE: COMPARISON: US US OR ANESTHESIA from 10/24/[address] CHEST PE CTA from 12/10/2020 FINDINGS: CT examination of the abdomen and pelvis was performed with bolus infusion of 100 cc of Omnipaque 350 and ingestion dilute barium. Venous phase and 7 minutes delayed phase images were obtained. The visualized lung bases are clear. The liver and spleen are unremarkable except for nonspecific 1 cm low-attenuation finding in inferior pole of the spleen, likely splenic cyst. Gallbladder and bile ducts are CT normal. Pancreas is unremarkable appearance. Abdominal aorta is of normal diameter. Moderate wall calcification of multiple abdominal vessel seen gross obstructing lesion. No abdominal aortic aneurysm. No focal bowel pathology identified. Appendix is normal. Adrenals appear normal bilaterally. As noted on recent chest CT, there is an intermediate attenuation nonenhancing masslike finding in th e location of the right kidney and extending along the expected location of the right ureter. This m easures in the 25 Hounsfield units mean range. There is an associated 5 cm in diameter lobulated mas s of the distal presumed ureteral course just above the ureterovesical junction. This is of intermed iate and heterogeneous attenuation. Findings may represent an obstructing ureteral mass with psych a nd areae hydronephrosis arm and hemorrhagic or tumor mass in the remaining marked dilated right colle cting system. Left kidney is unremarkable in appearance with no hydronephrosis or nephrolithiasis. A couple of pre sumed tiny left renal cysts are noted. There is a mildly enlarged right external iliac node at about 2.5 cm. No additional significant francoise opathy in abdomen or pelvis. No significant abdominal hernia seen. IMPRESSION: Apparent massively dilated collecting system of right kidney and right ureter, hemorrhagic contents v ersus tumor contents. Obstructing lobulated pelvic mass at the level of the distal right ureter. Po ssible enlarged right external iliac node. Correlation with cystoscopy and right ureteroscopy recomm ended. RADIATION DOSE DELIVERED: 2,393.17mGy.cm Total DLP RADIATION OPTIMIZATION: All CT scans at this facility use at least one of these dose optimization te chniques: automated exposure control; mA and/or kV adjustment per patient size (includes targeted exa ms where dose is matched to clinical indication); or iterative reconstruction.
[2020-12-26] MEDS: Normal Saline - Diluent 50 ML VIAL IV (10:13)
[2020-12-26] MEDS: Breeza Beverage 473 ML BTL PO (10:14)
[2020-12-26] MEDS: Omnipaque 350 MG/ML 100 ML BTL IJ (10:14)
[2020-12-26] MEDS: Omnipaque 350 MG/ML 50 ML BTL PO (10:15)
--- NOTE | 2020-12-26 11:00 | DI.NM_ITS ---
APPROVED REPORT Exam: Pharmacologic paired with low level exercise Patient Location: Out-Patient Room/Bed: Stress Nurse: Conchita Sandhu RN Ordering Provider:BIGG PAULINO, Contact Number: [phone] BMI: 35.66 Baseline Rhythm: Sinus Rhythm, LBBB Comment: T wave inversions leads III, aVF, V6 Indications: CHEST DISCOMFORT/PAIN, PALPITATIONS Medical History Medical History: HLD, HTN, GERD, Hypothyroidism Cardiac Medications: Metoprolol succinate, Amlodipine, Aspirin, Hydrochlorothiazide Allergies: PCNs, Erythromycin Cardiac Risk Factors: FHX of CAD, HTN, Hyperlipidemia, Obesity Previous Cardiac Procedures: None Pretest Chest Pain Characteristics: No chest pain Exercise History: Sedentary Physical Disabilities: None Lung Sounds: Clear to auscultation Heart Sounds: Regular Stress Test Details Test: Pharmacologic stress was paired with low level exercise. Reason for pharmacologic stress test: LBBB. Nuclear Acquisition: Rest Tc-99m/Stress Tc-99m 1 day Rest Isotope: Tc-99m Sestamibi. Dose: 9.0 Date: 12/26/2020 Injection Time: 1100 Stress Isotope: Tc-99m Sestamibi. Dose: 27 Date: 12/26/2020 Injection Time: 1322 HR Resting HR Supine: 68 bpm Max Heart Rate (APMHR): 151.199225 bpm Resting HR Standin bpm Target HR (85% APMHR): 128.308742 bpm Max HR Achieved: 126 bpm % of APMHR: 83.44 Recovery HR: 92 bpm BP Resting BP Supine: 156/70 mmHg Resting BP Standin/72 mmHg Max BP: 160/72 mmHg Recovery BP: 146/70 mmHg ECG Resting ECG: Sinus Rhythm, LBBB Ectopy: frequent PACs, PAC runs, PVC runs, PVCs Comment: T wave inversions leads III, aVF, V6 Stress ECG: Sinus Rhythm, LBBB ST Change: No significant ST segment changes noted Arrhythmia: frequent PACs, bigeminal PACs, PVCs, Recovery ECG: Sinus Rhythm, LBBB Clinical Stress Symptoms: Dyspnea, GI upset Rate Pressure Product: [id number] Stress ECG Conclusion 1. Resting electrocardiogram showed a left bundle branch block 2. Patient underwent low-level stress and pharmacologic stress with regadenoson 3. Blunted hemodynamics. Peak heart rate was 83% of predicted 4. There were frequent atrial premature beats, brief atrial runs, PVCs 5. Electrocardiographically the test was nondiagnostic due to abnormal resting EKG, inadequate heart rate Stress Test Summary STAGE HR BP Symptoms NOTES Supine 68 156/70 1 min post Lexiscan injection 125 148/72 Nauseous 3 min post Lexiscan injection 106 140/74 Dyspnea 6 min post Lexiscan injection 92 146/70 Symptoms resolved Standing 78 160/72 Lexiscan injection paired w/ low level exercise (1.5 mph at 0% grade). MD consulted before start of test due to concern for ectopic runs. MPI Conclusion Normal myocardial perfusion. No evidence of ischemia or prior infarction EF 57% Radiologist Interpretation Radiologist agrees with Associate Professor Of Forestry's Interpretation. Radiologist Interpretation by: Ignacio Castañeda MD Interpretation Date/Time: 12/26/2020 15:08:36
[2020-12-26] MEDS: Regadenoson 0.4 MG/5 ML SYR IVP (13:00)
== END 2020-12-26 01:59 ==
LOC: DI 01:40
PROVIDERS: PCP Nurse Practitioner Family; Visit Provider Family Medicine
DX: R07.9 Chest pain, unspecified (principal); R00.2 Palpitations; Z82.49 Family history of ischemic heart disease and other diseases of the circulatory system; I10 Essential (primary) hypertension; E78.5 Hyperlipidemia, unspecified; E66.9 Obesity, unspecified; I49.1 Atrial premature depolarization; I49.3 Ventricular premature depolarization; K86.89 Other specified diseases of pancreas; N28.89 Other specified disorders of kidney and ureter; R19.09 Other intra-abdominal and pelvic swelling, mass and lump
CPT/HCPCS: 78452; 93016; 93018; 74177; 93017; J2785; J3490; Q9967

== ENCOUNTER 2020-12-27 14:33 | Outpatient (CLI) | payer MEDICARE, SELFPAY | END 2020-12-27 14:34 | LOC: CARDO 12-30 12:34 | PROVIDERS: PCP Nurse Practitioner Family; Referring Provider Internal Medicine; Visit Provider Internal Medicine Cardiovascular Disease | DX: I47.1 Supraventricular tachycardia (principal); I49.1 Atrial premature depolarization | CPT/HCPCS: 93248 ==

== ENCOUNTER 2021-02-27 11:12 | Emergency (ER) | payer MEDICARE, SELFPAY ==
[2021-02-27] VITALS (40 sets, daily range): BP systolic 131–183; BP diastolic 66–87; PULSE 52–79; RESP 10–25; TEMP 36.6–36.7; O2SAT 92–100
--- NOTE | 2021-02-27 11:15 | RT.EKG_ITS ---
APPROVED REPORT Exam: Resting ECG Reason for Exam: chest pain Patient Location: E HR:69 bpm ECG Measurements Heart Rate 69 AXIS AK 156 P 63 QRSd 143 QRS -39 QT 436 T 127 QTc 467 Conclusion Sinus rhythm...normal P axis, V-rate 60- 99 Left bundle branch block...QRSd>120, broad/notched R
[2021-02-27 11:40] LABS: Abs Immature Grans 0.03 10^3/uL (0.0-0.06); Absolute Basophil Count 0.05 10^3/uL (0.0-0.2); Absolute Lymphocyte Count 2.12 10^3/uL (1.2-3.4); Absolute Monocyte Count 0.57 10^3/uL (0.1-0.8); Absolute Neutrophil Count 4.92 10^3/uL (1.2-6.7); Basophils % 0.6; Eosinophils % 2.5; HCT 47.2 % (36.0-46.0); HGB 15.2 g/dL (11.2-15.7); Immature Grans % 0.4; Lymphocytes % 26.9; MCH 26.8 pg (27.0-33.0); MCHC 32.2 % (32.0-36.0); MCV 83.2 fL (80-95); MPV 9.8 fL (8.0-11.0); Monocytes % 7.2; Neutrophils % 62.4; Nucleated RBC 0 %; Platelet Count 233 10^3/uL (130-400); RBC 5.67 10^6/uL (3.93-5.22); RDW 14.2 % (11.7-14.6); RDW-SD 43.3 fL; WBC 7.89 10^3/uL (4.4-10.8)
--- NOTE | 2021-02-27 11:53 | ED.GENADUL_ITS ---
Discharge Plan Disposition Patient Disposition: HOME Condition: Stable Discharge Details Clinical Impression: Heart palpitations, Paroxysmal SVT (supraventricular tachycardia) Primary Care Provider: Brandon Bowden ED Provider: Cheikh John Home Meds and New Rx's Prescriptions: New diltiazem HCl 120 mg capsule,extended release 24hr 120 mg PO DAILY Qty: 30 RF: 0 Continued amlodipine 10 mg tablet 10 mg PO DAILY RF: 0 acetaminophen 500 mg tablet 1,000 mg PO Q8H PRN (Reason: pain) Qty: 90 RF: 3 aspirin 81 mg tablet,delayed release (DR/EC) 81 mg PO DAILY RF: 0 metoprolol succinate [Toprol XL] 100 mg tablet extended release 24 hr 150 mg PO DAILY Qty: 45 RF: 0 Probiotic 3 billion cell Capsule 3,000 mmu cells PO DAILY RF: 0 Discharge Instructions Instructions: Alprazolam (By mouth), Supraventricular Tachycardia (ED) Additional Instructions: Please follow-up with Dr. Young, cardiology, on March 07 at 9 AM Please follow-up with Dr. Enriquez as scheduled. Please be sure to review all recent diagnostic imaging with Dr. Enriquez. Take Xanax 0.25mg tablet by mouth once a day if needed for severe anxiety. Otherwise, please take your medications including metoprolol and diltiazem as prescribed. Return to the ER for any worsening or new concerning symptoms. Referrals: Farida Enriquez MD [ [facility] STAFF PHYSICIAN] - Ha Young MD [ CONSULTING PHYSICIAN] - 03/07/21 9:00 am Discharge Data Discharge Date/Time-TO BE ENTERED AT DEPARTURE: 02/27/21 16:07 Medical Decision Making 71-year-old female with history of paroxysmal SVT, diabetes, hyperlipidemia, hypertension, here with palpitations, increased recently, also associated with mild chest discomfort. Patient is hypertensive on arrival. She is saturating well in no respiratory distress. She is anxious EKG was reviewed and interpreted by me: Sinus rhythm 69 bpm, left bundle branch block, QTC 467, nondiagnostic. While I was evaluating the patient she noted palpitations and I was able to observe short run of SVT on equipment monitor phototypesetting. She remained normotensive during this episode. Labs reviewed and patient has no significant electrolyte abnormalities. TSH normal. Initial troponin and second delta troponin both negative. Patient was quite anxious. I provided Xanax and on reassessment symptoms much improved. Patient reassessed after diltiazem and blood pressure significantly improved I called and spoke with cardiology, Dr. Li, discussed ED presentation and course and he reviewed medical record and recommends initiating treatment with diltiazem 120mg and having her follow-up with him in clinic. He arranged appointment for her on March 07 at 9a. --Chest x-ray was reviewed and interpreted by me: No acute cardiopulmonary disease noted. --After discharge it was noted that patient is on amlodipine. We have started diltiazem today. I spoke with the pharmacy who will have the patient hold her amlodipine while she now starts diltiazem. Medical Records Medical records reviewed: Yes I reviewed the patient's medical records. Medical records narrative: Patient had 14-day equipment monitor phototypesetting in December that revealed paroxysmal SVT with longest being 26 beat. Patient had myocardial perfusion scan and nuclear medicine study 12/26/2020 revealed: MPI Conclusion Normal myocardial perfusion. No evidence of ischemia or prior infarction EF 57% Lab Data Lab results reviewed: Yes I reviewed the patient's lab results. Labs: Laboratory Tests Range/Units 02/27/21 02/27/21 02/27/21 11:23 11:23 14:20 WBC (4.4-10.8) 10^3/uL 7.89 RBC (3.93-5.22) 10^6/uL 5.67 H Hgb (11.2-15.7) g/dL 15.2 Hct (36.0-46.0) % 47.2 H MCV (80-95) fL 83.2 MCH (27.0-33.0) pg 26.8 L MCHC (32.0-36.0) % 32.2 RDW (11.7-14.6) % 14.2 Plt Count (130-400) 10^3/uL 233 MPV (8.0-11.0) fL 9.8 Immature Gran % 0.4 Neutrophils % 62.4 Lymphocytes % 26.9 Monocytes % 7.2 Eosinophils % 2.5 Basophils % 0.6 Nucleated RBC % % 0 Absolute Neutrophils (1.2-6.7) 10^3/uL 4.92 Absolute Lymphocytes (1.2-3.4) 10^3/uL 2.12 Absolute Monocytes (0.1-0.8) 10^3/uL 0.57 Absolute Eosinophils (0.0-0.7) 10^3/uL 0.20 Absolute Basophils (0.0-0.2) 10^3/uL 0.05 Sodium (136-145) mmol/L 146 H Potassium (3.5-5.1) mmol/L 3.5 Chloride (98-107) mmol/L 108 H Carbon Dioxide (21.0-32.0) mmol/L 28.5 Anion Gap (3-11) mmol/L 9.5 BUN (7-18) mg/dL 17 Creatinine (0.55-1.02) mg/dL 0.9 Estimated GFR/1.73 m2 (mL/min/1.73m2) >= 60.00 Glucose (74-106) mg/dL 118 H Calcium (8.5-10.1) mg/dL 9.1 Magnesium (1.8-2.4) mg/dL 1.7 L Total Bilirubin (0.2-1.0) mg/dL 1.0 AST (15-37) U/L 15 ALT (14-59) U/L 21 Alkaline Phosphatase (46-116) U/L 75 Troponin I (<0.06) ng/mL < 0.05 < 0.05 Total Protein (6.4-8.2) g/dL 7.6 Albumin (3.4-5.0) g/dL 3.8 TSH (0.36-3.74) uIU/mL 2.10 HPI General Mode of arrival: ambulatory . Date/Time Provider Initiated Documentation: 02/27/21 11:18 . Limitations to Documentation: no limitations . Information obtained by: patient . HPI Narrative: 71-year-old female with history of paroxysmal supraventricular tachycardia, left bundle branch block hypothyroidism in the past and no longer treated with Synthroid, presents with chief complaint of palpitations. Patient notes increased palpitations recently. Palpitations feel like flip-flopping and vibrating palpitations has been severe at times. No associated shortness of breath. She also notes some mild chest discomfort recently. Patient was seen here and admitted and treated for paroxysmal supraventricular tachycardia with increased dose of beta-joo in November. Plan at discharge was 14-day equipment monitor phototypesetting which she had and then follow-up with PCP and cardiology. Unfortunately she did not have PCP follow-up as planned and has not been referred to cardiology. She does note recently she has had increased stress in her life related to family members with illness. Patient states that she has not been taking Synthroid x1yr as previously prescribed and is also not taking hydrochlorothiazide previously prescribed. Related Data Home Medications Medication Instructions Recorded Confirmed amlodipine 10 mg tablet 10 mg PO DAILY 01/18/19 02/27/21 acetaminophen 1,000 mg PO Q8H PRN #90 tab 10/25/19 02/27/21 aspirin 81 mg PO DAILY 12/10/20 02/27/21 metoprolol succinate [Toprol XL] 150 mg PO DAILY #45 tab 12/11/20 02/27/21 Probiotic 3,000 mmu cells PO DAILY 02/27/21 02/27/21 diltiazem HCl 120 mg PO DAILY #30 cap 02/27/21 Previous Rx's Medication Instructions Recorded acetaminophen 1,000 mg PO Q8H PRN #90 tab 10/25/19 metoprolol succinate [Toprol XL] 150 mg PO DAILY #45 tab 12/11/20 diltiazem HCl 120 mg PO DAILY #30 cap 02/27/21 Allergies Allergy/AdvReac Type Severity Reaction Status Date / Time erythromycin base Allergy Severe tongue Verified 02/27/21 11:27 swelling/difficultly breathing Penicillins Allergy Unknown Verified 02/27/21 11:27 adhesive tape Allergy rash/bloody Verified 02/27/21 11:27 skin latex AdvReac itching/break Verified 02/27/21 11:27 out rash General Stated Complaint: Palpitatns ILENE: 2 Review of Systems All systems reviewed & are unremarkable except as noted in HPI and below Constitutional Constitutional: Denies fever(s) Cardiovascular Cardiovascular: Reports chest pain (discomfort with palpitations and while lying down last night) and Denies dyspnea Respiratory Respiratory: Denies dyspnea PFSH Medical History Borderline diabetes mellitus GERD (gastroesophageal reflux disease) Hx of Clostridium difficile infection ER visit Improved with oral antibx Hyperlipidemia Hypertension Hypothyroidism Impaired renal function Pt reported Patient is Taoist Refusal of blood transfusions as patient is Taoist Vaginal yeast infection Surgical History History of arthroplasty of left knee (08/30/19) History of breast surgery Blocked duct Left breast History of History of colonoscopy History of eye surgery Right eye - detached retina Hx of dilation and curettage Family History Mother TIA (transient ischemic attack) Other Diabetes Heart disease Social History Smoking/Tobacco Use Status: Never Smoking risk assessment performed?: Yes Alcohol Intake: current Alcohol Intake frequency: holidays/special occasions only Drug use: Never Substance use type: does not use Current gender identity: female Nisha/Rastafarian: Taoist Agree to transfusion: No Do you feel safe at home: Yes Do you feel safe in your relationship?: Yes Exam Const General: cooperative and no acute distress HENMT Mouth: moist mucous membranes Eyes Conjunctivae: normal conjunctivae Sclera: normal sclerae Neck Neck: trachea midline and supple Resp Auscultation: clear to auscultation bilaterally, no rales, no rhonchi and no wheezes Cardio Rate: regular rate and not tachycardic Rhythm: regular rhythm GI Palpation: soft, not firm, no guarding, no masses, not rigid and nontender Skin General skin exam: no rashes or lesions noted Neuro General: patient alert, patient awake, patient oriented x3 and tone normal Extrem General: no calf tenderness Psych Appearance: grossly normal Mood: anxious mood Course Vital Signs Vital signs: Vital Signs Temperature 36.6 C 02/27/21 11:23 Pulse 71 02/27/21 11:23 Respiratory Rate 13 02/27/21 11:23 Blood Pressure 172/80 H 02/27/21 11:23 Pulse Oximetry 99 02/27/21 11:23 Temperature 36.6 C 02/27/21 11:23 Temperature Source Skin 02/27/21 11:23 Pulse 71 02/27/21 11:23 Respiratory Rate 13 02/27/21 11:23 Respiratory Effort Non-Labored 02/27/21 11:26 Blood Pressure 172/80 H 02/27/21 11:23 Blood Pressure Position Sitting 02/27/21 11:23 Pulse Oximetry 99 02/27/21 11:23 Oxygen Delivery Method Room Air 02/27/21 11:23 Oxygen Flow Rate 0 02/27/21 11:23 Pain Level 0 02/27/21 11:23 Lab/Test Results Lab/Test Results: Laboratory Tests Range/Units 02/27/21 11:23 WBC (4.4-10.8) 10^3/uL 7.89 RBC (3.93-5.22) 10^6/uL 5.67 H Hgb (11.2-15.7) g/dL 15.2 Hct (36.0-46.0) % 47.2 H MCV (80-95) fL 83.2 MCH (27.0-33.0) pg 26.8 L MCHC (32.0-36.0) % 32.2 RDW (11.7-14.6) % 14.2 Plt Count (130-400) 10^3/uL 233 MPV (8.0-11.0) fL 9.8 Immature Gran % 0.4 Neutrophils % 62.4 Lymphocytes % 26.9 Monocytes % 7.2 Eosinophils % 2.5 Basophils % 0.6 Nucleated RBC % % 0 Absolute Neutrophils (1.2-6.7) 10^3/uL 4.92 Absolute Lymphocytes (1.2-3.4) 10^3/uL 2.12 Absolute Monocytes (0.1-0.8) 10^3/uL 0.57 Absolute Eosinophils (0.0-0.7) 10^3/uL 0.20 Absolute Basophils (0.0-0.2) 10^3/uL 0.05
[2021-02-27] MEDS: ALPRAZolam 0.25 MG TAB PO (11:58)
[2021-02-27 12:01] LABS: ALT 21 U/L (14-59); AST 15 U/L (15-37); Albumin 3.8 g/dL (3.4-5.0); Alkaline Phosphatase 75 U/L (46-116); Anion Gap 9.5 mmol/L (3-11); BUN 17 mg/dL (7-18); CO2 28.5 mmol/L (21.0-32.0); CREATININE 0.9 mg/dL (0.55-1.02); Calcium 9.1 mg/dL (8.5-10.1); Chloride 108 mmol/L (98-107); Glucose 118 mg/dL (74-106); Magnesium 1.7 mg/dL (1.8-2.4); Potassium 3.5 mmol/L (3.5-5.1); Sodium 146 mmol/L (136-145); Total Protein 7.6 g/dL (6.4-8.2)
[2021-02-27 12:03] LABS: Troponin I < 0.05 ng/mL (<0.06)
[2021-02-27] MEDS: dilTIAZem CD 120 MG CAPCR PO (12:21)
[2021-02-27] MEDS: Magnesium Oxide 400 MG TAB PO (13:38)
[2021-02-27 14:43] LABS: Troponin I < 0.05 ng/mL (<0.06)
--- NOTE | 2021-02-27 14:45 | DI.RAD_ITS ---
Exam(s) XR CHEST 2V PA LATERAL EXAM: XR CHEST 2V PA LATERAL CLINICAL HISTORY: chest pain TECHNIQUE: 2D digital imaging was performed. COMPARISON: CT CT CHEST PE CTA from 12/10/[address] CHEST PE CTA from 12/10/2020 FINDINGS: MEDIASTINUM: Descending aorta mildly tortuous. HEART: Normal. PULMONARY VASCULATURE: Normal. LUNGS: Clear. PLEURAL SPACE: No pleural effusion or pneumothorax. BONE:Unremarkable for age. IMPRESSION: No acute abnormality. DATA REPOSITORY: RADIATION DOSE DELIVERED:
[2021-02-27] MEDS: ALPRAZolam 0.25 MG TAB 1 MG PO (15:32)
== END 2021-02-27 16:07 | disposition home or self-care (01) ==
PROVIDERS: Emergency Provider Student in an Organized Health Care Education/Training Program; PCP Nurse Practitioner Family
DX: I47.1 Supraventricular tachycardia (principal); R00.2 Palpitations; F41.9 Anxiety disorder, unspecified
CPT/HCPCS: 36415; 80053; 93005; 99285; 71046; 83735; 84443; 84484; 85025; 93010

== ENCOUNTER → 2021-03-07 09:04 | Outpatient (BNVA) | payer MEDICARE, SELFPAY | PROVIDERS: PCP Nurse Practitioner Family; Referring Provider Nurse Practitioner Family; Visit Provider Internal Medicine Cardiovascular Disease | DX: R00.2 Palpitations (principal); I47.1 Supraventricular tachycardia; G47.33 Obstructive sleep apnea (adult) (pediatric); I10 Essential (primary) hypertension | CPT/HCPCS: 99204; 99215 ==

== ENCOUNTER → 2021-03-27 13:01 | Outpatient (BNVA) | payer MEDICARE, SELFPAY | PROVIDERS: PCP Nurse Practitioner Family; Referring Provider Nurse Practitioner Family; Visit Provider Urology | DX: N28.89 Other specified disorders of kidney and ureter (principal); R31.29 Other microscopic hematuria; N13.30 Unspecified hydronephrosis | CPT/HCPCS: 81003; 99204; 99215; G2212 ==

== ENCOUNTER → 2021-04-01 10:00 | Outpatient (BNVA) | payer MEDICARE, SELFPAY | PROVIDERS: PCP Family Medicine; Referring Provider Nurse Practitioner Family; Visit Provider Internal Medicine Cardiovascular Disease | DX: I47.1 Supraventricular tachycardia (principal); G47.33 Obstructive sleep apnea (adult) (pediatric); I10 Essential (primary) hypertension; I48.0 Paroxysmal atrial fibrillation; Z79.899 Other long term (current) drug therapy | CPT/HCPCS: 99214 ==

== ENCOUNTER → 2021-07-11 09:47 | Outpatient (BNVA) | payer MEDICARE, SELFPAY | PROVIDERS: PCP Family Medicine; Referring Provider Family Medicine; Visit Provider Internal Medicine Cardiovascular Disease | DX: I47.1 Supraventricular tachycardia (principal); I10 Essential (primary) hypertension | CPT/HCPCS: 99214; 99213 ==

== ENCOUNTER → 2022-01-09 10:32 | Outpatient (BNVA) | payer MEDICARE, OTHER, SELFPAY | PROVIDERS: PCP Family Medicine; Referring Provider Family Medicine; Visit Provider Internal Medicine Cardiovascular Disease | DX: I47.1 Supraventricular tachycardia (principal); I10 Essential (primary) hypertension; G47.33 Obstructive sleep apnea (adult) (pediatric) | CPT/HCPCS: 99214; 99213 ==

== ENCOUNTER 2022-02-09 12:17 | Outpatient (REF) | payer MEDICARE, OTHER, SELFPAY ==
[2022-02-09 15:29] LABS: ALT 29 U/L (14-59); BUN 23 mg/dL (7-18); CREATININE 0.9 mg/dL (0.55-1.02); Calcium 9.3 mg/dL (8.5-10.1); Chloride 103 mmol/L (98-107); Ferritin 125 ng/mL (8-252); Glucose 107 mg/dL (74-106); Potassium 4.6 mmol/L (3.5-5.1); Sodium 138 mmol/L (136-145)
[2022-02-09 17:09] LABS: TSH (W/Ref FT4) 2.95 uIU/mL (0.36-3.74)
[2022-02-09 23:39] LABS: Calculated LDL 68 mg/dL (<100); Cholesterol 143 mg/dL (<200); HDL Cholesterol 49 mg/dL (40-60); Triglyceride 130 mg/dL (<150)
== END 2022-02-09 12:18 | disposition home or self-care (01) ==
LOC: NCHCN 12:17
PROVIDERS: PCP Family Medicine; Visit Provider Family Medicine
DX: I10 Essential (primary) hypertension (principal); E78.5 Hyperlipidemia, unspecified; R19.03 Right lower quadrant abdominal swelling, mass and lump; Z86.69 Personal history of other diseases of the nervous system and sense organs; I48.0 Paroxysmal atrial fibrillation
CPT/HCPCS: 80048; 80061; 82728; 84443; 84460

== ENCOUNTER → 2022-07-10 09:56 | Outpatient (BNVA) | payer MEDICARE, OTHER, SELFPAY | PROVIDERS: PCP Family Medicine; Visit Provider Internal Medicine Cardiovascular Disease | DX: I47.1 Supraventricular tachycardia (principal); I10 Essential (primary) hypertension; Z99.89 Dependence on other enabling machines and devices; G47.33 Obstructive sleep apnea (adult) (pediatric) | CPT/HCPCS: 99214 ==

== ENCOUNTER 2022-12-04 14:47 | Outpatient (REF) | payer MEDICARE, OTHER, SELFPAY ==
[2022-12-04 15:22] LABS: HGB 13.4 g/dL (11.2-15.7); MCH 27.4 pg (27.0-33.0); MCHC 32.7 % (32.0-36.0); MCV 84 fL (80-95); Platelet Count 239 10^3/uL (130-400); RBC 4.89 10^6/uL (3.93-5.22); RDW 14.6 % (11.7-14.6); RDW-SD 44.5 fL; WBC 6.19 10^3/uL (4.4-10.8)
[2022-12-04 16:00] LABS: NT-proBNP 164 pg/mL (<300)
[2022-12-04 16:43] LABS: Hemoglobin A1C 6.8 % (<5.7)
[2022-12-04 19:51] LABS: ALT 31 U/L (14-59); AST 23 U/L (15-37); Albumin 3.6 g/dL (3.4-5.0); Alkaline Phosphatase 94 U/L (46-116); Anion Gap 8.2 mmol/L (3-11); BUN 24 mg/dL (7-18); Bilirubin, Total 0.8 mg/dL (0.2-1.0); CO2 29.8 mmol/L (21.0-32.0); CREATININE 1.2 mg/dL (0.55-1.02); Calcium 9.1 mg/dL (8.5-10.1); Chloride 106 mmol/L (98-107); Estimated GFR 48.39 (mL/min/1.73m2); Glucose 147 mg/dL (74-106); Potassium 4.2 mmol/L (3.5-5.1); Sodium 144 mmol/L (136-145); Total Protein 6.6 g/dL (6.4-8.2)
== END 2022-12-04 14:48 | disposition home or self-care (01) ==
LOC: NCHCN 14:47
PROVIDERS: PCP Family Medicine; Visit Provider Family Medicine
DX: I10 Essential (primary) hypertension (principal); R73.03 Prediabetes; R60.0 Localized edema; R06.89 Other abnormalities of breathing
CPT/HCPCS: 80053; 85027; 83036; 83880; 84443

== ENCOUNTER 2023-01-15 00:32 | Outpatient (CLI) | payer MEDICARE, OTHER, SELFPAY ==
--- NOTE | 2023-01-15 10:43 | DI.DEXA_ITS ---
Exam(s) XR DEXA BONE DENSITY W/WO MORENA EXAM: XR DEXA BONE DENSITY W/WO MORENA CLINICAL HISTORY: SCREENING FOR OSTEOPOROSIS IN POSTMENOPAUSAL WOMAN, Z78.0 TECHNIQUE: COMPARISON: No exams were available for comparison FINDINGS: Lateral Spine Image: Unremarkable. No compression deformities identified. Left hip: Total T-Score: 0.8 Total Z-Score: 2.4 T- and Z-scores: Within normal limits. Lumbar Spine: Total T-Score: 3.9 Total Z-Score: 6.1 T- and Z-scores: Within normal limits. IMPRESSION: No evidence of osteoporosis.
== END 2023-01-15 00:52 ==
LOC: DI 00:32
PROVIDERS: PCP Family Medicine; Visit Provider Family Medicine
DX: Z78.0 Asymptomatic menopausal state (principal); Z13.820 Encounter for screening for osteoporosis
CPT/HCPCS: 77080

== ENCOUNTER 2023-02-24 18:47 | Outpatient (REF) | payer MEDICARE, SELFPAY ==
[2023-02-24 15:59] LABS: Anion Gap 8.9 mmol/L (3-11); BUN 23 mg/dL (7-18); CO2 28.1 mmol/L (21.0-32.0); Calcium 9.3 mg/dL (8.5-10.1); Chloride 106 mmol/L (98-107); Estimated GFR 59.86 (mL/min/1.73m2); Glucose 137 mg/dL (74-106); Potassium 4.5 mmol/L (3.5-5.1); Sodium 143 mmol/L (136-145)
[2023-02-24 16:09] LABS: Hemoglobin A1C 6.4 % (<5.7)
== END 2023-02-24 18:48 | disposition home or self-care (01) ==
LOC: NCHCN 18:47
PROVIDERS: PCP Family Medicine; Visit Provider Family Medicine
DX: R73.03 Prediabetes (principal); I10 Essential (primary) hypertension; R60.0 Localized edema
CPT/HCPCS: 80048; 83036

== ENCOUNTER 2023-07-23 10:43 | Outpatient (CLI) | payer MEDICARE, OTHER, SELFPAY ==
--- NOTE | 2023-07-23 10:45 | RT.EKG_ITS ---
APPROVED REPORT Exam: Resting ECG Reason for Exam: 1 year followup Patient Location: O HR:64 bpm ECG Measurements Heart Rate 64 AXIS MO 138 P 52 QRSd 146 QRS -28 QT 445 T 81 QTc 459 Conclusion Sinus rhythm...normal P axis, V-rate 50- 99 Left bundle branch block...QRSd>120, broad/notched R Baseline wander in lead(s) V6
== END 2023-07-23 10:44 | disposition home or self-care (01) ==
LOC: DI.CARD 10:47
PROVIDERS: PCP Family Medicine; Visit Provider Internal Medicine Cardiovascular Disease
DX: R00.2 Palpitations (principal)
CPT/HCPCS: 93010

== ENCOUNTER → 2023-07-23 10:43 | Outpatient (BNVA) | payer MEDICARE, OTHER, SELFPAY | PROVIDERS: PCP Family Medicine; Referring Provider Family Medicine; Visit Provider Internal Medicine Cardiovascular Disease | DX: I44.7 Left bundle-branch block, unspecified (principal); I47.10 Supraventricular tachycardia, unspecified; R06.02 Shortness of breath; I10 Essential (primary) hypertension | CPT/HCPCS: 93005; 99214 ==

== ENCOUNTER → 2023-09-02 03:03 | Outpatient (CLI) | payer MEDICARE, OTHER, SELFPAY ==
--- NOTE | 2023-09-02 09:33 | DI.US_ITS ---
APPROVED REPORT EXAM: Comprehensive 2D, Doppler, and color-flow Echocardiogram Patient Location: Out-Patient Publications Writer: iKko Gil RDCS (AE) Indications: left bundle branch block, SVT, dyspnea Other Information Study Quality: Good. Technically limited study due to body habitus. Conclusion 1. Normal chamber sizes. 2. Mild to moderateb concrntric LVH with normal systolic function,EF 55-60%.Septal bounce due to BBB. Probable grade 1 diastolic dysfunction.Normal RV function. 3. Anatomically normal valves.No significant regurgitation or stenosis. 4. No intracardiac shunt 5. No pericardial effusion. Wall motion Left Ventricle The left ventricle is normal size. The left ventricular systolic function is normal. The left ventric ular ejection fraction is within the normal range. Borderline concentric left ventricular hypertrophy . There is normal LV segmental wall motion. There is no ventricular septal defect visualized. LVEF is 58%. Right Ventricle The right ventricle is normal size. The right ventricular systolic function is normal. Atria The left atrium size is normal. The right atrium size is normal. Aortic Valve The aortic valve is normal in structure. Aortic valve is trileaflet. There is no aortic valvular sten osis. No aortic regurgitation is present. Mitral Valve The mitral valve is normal in structure. No evidence of mitral valve stenosis. There is no mitral suraj ve regurgitation noted. Tricuspid Valve The tricuspid valve is normal in structure. There is no tricuspid valve stenosis. Trace tricuspid reg urgitation. The RVSP is 36.3 mmHg. Pulmonic Valve The pulmonary valve is normal in structure. There is no pulmonic valvular stenosis. There is no pulmo matthias valvular regurgitation. Great Vessels The aortic root is normal in size. The ascending aorta is mildly dilated. Aortic arch is not well vis ualized. IVC is normal in size and collapses >50% with inspiration. Pericardium There is no pericardial effusion. 2D Dimensions IVSD d PLAX 0.95 cm F: 0.6-1.0 Ao Root d 2.53 cm F: 2.7 - 3.3 LVPW d PLAX 0.93 cm F: 0.6 - 1.0 Ao Asc Diam d 3.27 cm F: 2.3 - 3.1 LVID d PLAX 4.58 cm F: 3.8 - 5.2 LVDs 3.14 cm F: 2.2 - 3.5 LV EF Teichholz 59.3 % FS 31.40 % LV EDV (Teich) 96.4 mL LV ESV (Teich) 39.2 mL Stroke Vol Index (Teich) 27.91 M-Mode TAPSE 2.37 cm (M/F) >1.7 Auto EF LV EDV A4C 110.7 mL LV EDV A2C 88.8 mL LV EDV BP LV ESV A4C 46.6 mL LV ESV A2C 37.6 mL LV ESV BP LVEF(%) A4C 57.9 % LVEF(%) A2C 57.7 % LVEF(%) BP LV SV A4C 64.1 ml LV SV A2C 51.2 ml LV SV BP LV CO A4C 3.7 L/min LV CO A2C 3.2 L/min LV CO BP HR A4C 57.69 BPM HR A2C 61.64 BPM LV EDV Index (BP) LA Volume LA Length A4C 4.2 cm LA Length A2C 4.3 cm LA Area A4C s 10.36 cm2 LA Area A2C s 14.61 cm2 LA Vol A4C A-L 21.48 mL LA Vol A2C A-L 42.08 mL LA Vol Biplane A-L 30.3 mL LA Vol/BSA A4C A-L LA Vol/BSA A2C A-L LA Vol/BSA BP A-L 14.8 mL/m2 LA Vol A4C MOD 20.4 mL LA Vol A2C MOD 38.6 mL LA Vol BP MOD 28.0 mL RA Volume RA Area A4C 7.0 cm2 RA ESV A4C (A-L) 10.4mL RA Vol/BSA A4C A-L RA Length A4C 4.0 cm RA ESV A4C (MOD) 10.4mL LV Diastology MV E' medial 0.058 (>0.07 m/s) MV E Vmax 0.63 (0.4-1.3 m/s) MV E/E' MED 10.85 (<14) MV A Vmax 0.75 (0.4-1.3 m/s) MV E' lateral 0.066 (>0.1 m/s) E/A Ratio 0.8 MV E/E' LAT 9.53 (<14) MV E' Average 0.062 m/s MV E/E'(average) 10.15 Aortic Valve AoV Vmax 1.22 m/s LVOT Vmax 1.05 m/s AoV Peak Grad 5.9 mmHg LVOT Peak Grad 4.4 mmHg AoV Area (Vmax) 2.14 cm2 LVOT VTI 0.288 m AoV VTI 0.353 m LVOT Mean Grad 2.9 mmHg AoV Mean Renzo. 0.92 m/s LVOT SV 71.47 mL AoV Mean Grad 3.8 mmHg LVOT Diam s 1.75 cm AoV Area (VTI) 2.03 cm2 Velocity Ratio 0.86 Mitral Valve MV DT 147 (160-240 msec) Pulmonary Valve PV Vmax 0.97 (0.5-1.5 m/s) RVOT Vmax 0.69 m/s PV Peak Grad 3.7 mmHg RVOT Peak Gr. 1.9 mmHg PV Mean Renzo 0.59 m/s RVOT VTI 0.177 m PV Mean Grad 1.6 mmHg RVOT Mean Gr. 1.1 mmHg Tricuspid Valve RA Pressure 3.00 mmHg TR Vmax 2.88 m/s TR Peak Grad 33.2 mmHg RVSP (TR) 36.3 mmHg
== END ==
PROVIDERS: PCP Family Medicine; Visit Provider Internal Medicine Cardiovascular Disease
DX: I44.7 Left bundle-branch block, unspecified (principal); I47.10 Supraventricular tachycardia, unspecified; R06.00 Dyspnea, unspecified
CPT/HCPCS: 93306

== ENCOUNTER → 2023-10-25 12:57 | Outpatient (BNVA) | payer MEDICARE, OTHER, SELFPAY | PROVIDERS: PCP Family Medicine; Referring Provider Family Medicine; Visit Provider Internal Medicine Cardiovascular Disease | DX: I10 Essential (primary) hypertension (principal); R00.2 Palpitations | CPT/HCPCS: 99213 ==

== ENCOUNTER 2024-02-21 18:06 | Outpatient (REF) | payer MEDICARE, OTHER, SELFPAY ==
[2024-02-21 19:19] LABS: ALT 26 U/L (14-59); AST 18 U/L (15-37); Albumin 3.9 g/dL (3.4-5.0); Alkaline Phosphatase 110 U/L (46-116); Anion Gap 7.4 mmol/L (3-11); BUN 26 mg/dL (7-18); Bilirubin, Total 0.79 mg/dL (0.2-1.0); CO2 32.6 mmol/L (21.0-32.0); CREATININE 0.9 mg/dL (0.55-1.02); Calcium 9.1 mg/dL (8.5-10.1); Chloride 104 mmol/L (98-107); Glucose 109 mg/dL (74-106); Potassium 4.1 mmol/L (3.5-5.1); Sodium 144 mmol/L (136-145); TSH (W/Ref FT4) 5.41 uIU/mL (0.36-3.74); Total Protein 7.1 g/dL (6.4-8.2)
[2024-02-21 19:22] LABS: Hemoglobin A1C 6.4 % (<5.7)
[2024-02-21 19:44] LABS: FREE T4 0.83 ng/dL (0.76-1.46)
[2024-02-21 20:54] LABS: NT-proBNP 228 pg/mL (<300)
== END 2024-02-21 18:07 | disposition home or self-care (01) ==
LOC: NCHCN 18:06
PROVIDERS: PCP Family Medicine; Visit Provider Family Medicine
DX: I10 Essential (primary) hypertension (principal); R73.03 Prediabetes; R53.83 Other fatigue; R06.02 Shortness of breath; R60.0 Localized edema
CPT/HCPCS: 80053; 83036; 83880; 84439; 84443